=== PATIENT | male | born 1945 | race Caucasian/White ===

== ENCOUNTER 2020-07-09 16:04 | Inpatient (IN) ==
[2020-07-09] MEDS ORDERED: ALBUTEROL/IPRATROPIUM 3 ML NEB RESP TX STA (17:11)
[2020-07-09] MEDS ORDERED: DEXAMETHASONE 4 MG/1 ML VIAL IV STA (17:12)
[2020-07-09 17:24] LABS: Hematocrit 48.5 VOL% (42.0-52.0); Hemoglobin 16.5 GM/DL (14.0-18.0); Immature Granulocytes % 0.5 %; Immature Granulocytes Absolute 0.02 #; Lymphocytes # 0.3 10*3/uL (1.4-4.0); Lymphocytes % 6.6 % (21.2-54.2); Mean Corpuscular Volume 96.2 FL (87-102); Mean Platelet Volume 12.6 FL (9.6-12.0); Monocytes % 5.7 % (1.7-12.7); Neutrophils % 87.2 % (38.7-73.9); Platelet Count 119 T/CUMM (130-400); Red Blood Count 5.04 MC/CUMM (3.8-5.5); Red Cell Distribution Width 13.9 % (9.3-17.3); White Blood Count 4.4 T/CUMM (4-12)
[2020-07-09] MEDS ORDERED: cefTRIAXone 1,000 MG in SODIUM CHLORIDE 0.9% 100 ML IV STA (17:29)
[2020-07-09] MEDS ORDERED: AZITHROMYCIN 250 MG TABLET PO STA (17:29)
[2020-07-09] MEDS ORDERED: GLUCAGON 1 MG VIAL IM PRN (17:53)
[2020-07-09] MEDS ORDERED: ACETAMINOPHEN 325 MG TABLET PO PRN (17:53)
[2020-07-09] MEDS ORDERED: NICOTINE 21 MG/24 HR PATCH TRANSDERM PRN (17:53)
[2020-07-09] MEDS ORDERED: ONDANSETRON 4 MG/2 ML VIAL IV PRN (17:53)
[2020-07-09 17:56] LABS: Albumin 2.7 G/DL (3.4-5.0); Bilirubin,Total 1.2 MG/DL (0.2-1.0); Calcium 8.9 MG/DL (8.5-10.1); Ferritin 640.5 ng/ml (26-388); Osmolality,Calculated 288.7 MOS/KG (273-304); Total Protein 7.6 G/DL (6.4-8.3)
[2020-07-09 18:08] LABS: ABG Base Excess -5.6 MMOL/L (-2.5-2.5); ABG HCO3 19.8 MMOL/L (20-26); ABG Oxygen Saturation 92.5 % (95-100); ABG PO2 64.2 MM HG (80-95); ABG TCO2 15.5 MMOL/L (23-27)
[2020-07-09] MEDS ORDERED: LACTATED RINGERS 1,000 ML IV ONE (18:19)
[2020-07-09] MEDS ORDERED: SODIUM BICARBONATE 50 MEQ/50 ML VIAL IV STA (18:23)
[2020-07-09] MEDS ORDERED: SODIUM BICARB INJ 50 MEQ in DEXTROSE 5% NACL 0.22% 1,000 ML IV SCH (18:30)
[2020-07-09] MEDS: INSULIN LISPRO 100 UNIT/ML SUBCUT SCH (20:36)
[2020-07-09] MEDS: MELATONIN 3 MG TABLET PO SCH (21:05)
[2020-07-09] MEDS: ENOXAPARIN 60 MG/0.6 ML SYRINGE SUBCUT SCH (21:06)
[2020-07-09] MEDS: guaiFENesin/DM ER 600-30 MG TABLET PO PRN (21:06)
[2020-07-09] MEDS: FAMOTIDINE 20 MG/2 ML VIAL IV SCH (21:06)
[2020-07-09] MEDS: CETIRIZINE 10 MG TABLET PO PRN (21:09)
[2020-07-10] MEDS: LACTATED RINGERS 1,000 ML IV SCH ×3 (00:20→16:34)
[2020-07-10 01:50] LABS: Amorphous Crystals,Urine Few /HPF (Few); Bilirubin,Urine Negative (Negative); Blood, Urine Moderate mg/dL (Negative); Glucose,Urine (UA) Negative (Negative); Ketones,Urine Negative (Negative); Mucus,Urine Many /LPF (Occasional); Nitrite,Urine Negative (Negative); Protein,Urine 100 MG/DL; Sperm,Urine Few /HPF (Negative); Urine Appearance CLOUDY (Clear); Urine Color Amber (Yellow); Urine Specific Gravity 1.019 (1.001-1.035); Urine Urobilinogen < 2.0 EU/DL (0.2-1.0); WBC,Urine 2 /HPF (0-6)
[2020-07-10 06:01] LABS: Hemoglobin 15.1 GM/DL (14.0-18.0); Immature Granulocytes % 0.4 %; Immature Granulocytes Absolute 0.01 #; Lymphocytes # 0.3 10*3/uL (1.4-4.0); Lymphocytes % 13.3 % (21.2-54.2); Mean Corpuscular HGB Conc 33.6 GM/DL (32-36); Mean Corpuscular Volume 98.3 FL (87-102); Mean Platelet Volume 12.7 FL (9.6-12.0); Neutrophils % 79.3 % (38.7-73.9); Platelet Count 104 T/CUMM (130-400); Red Blood Count 4.58 MC/CUMM (3.8-5.5); Red Cell Distribution Width 14.2 % (9.3-17.3); White Blood Count 2.6 T/CUMM (4-12)
[2020-07-10 06:04] LABS: INR 1.1; PT Patient Result 11.6 SECS (9.8-11.9)
[2020-07-10 06:15] LABS: Albumin 2.3 G/DL (3.4-5.0); Bilirubin,Total 1.5 MG/DL (0.2-1.0); Calcium 8.5 MG/DL (8.5-10.1); Ferritin 631.2 ng/ml (26-388); Osmolality,Calculated 305.8 MOS/KG (273-304); Total Protein 6.8 G/DL (6.4-8.3)
[2020-07-10 07:43] LABS: Band Neutrophils 5 % (0-10); Eosinophils 1 % (0-10); Hypochromasia Slight; Lymphocytes 5 % (20-55); Macrocytosis Slight; Segmented Neutrophils 83 % (50-85); Total Cells Counted 100
[2020-07-10 07:44] LABS: Platelet Estimate Decreased
[2020-07-10 07:47] LABS: Sedimentation Rate-Westergren 57 MM/HR (0-20)
[2020-07-10] MEDS: CHOLECALCIFEROL 1,000 UNIT TABLET PO SCH (08:58)
[2020-07-10] MEDS: AZITHROMYCIN 250 MG TABLET PO SCH (08:58)
[2020-07-10] MEDS: SODIUM BICARB INJ 150 MEQ in DEXTROSE 5% 850 ML IV SCH ×2 (08:58→22:42)
[2020-07-10] MEDS: ZINC GLUCONATE 50 MG TABLET PO SCH (08:58)
[2020-07-10] MEDS: PANTOPRAZOLE 40 MG TABLET PO SCH (08:58)
[2020-07-10] MEDS: ASCORBIC ACID 500 MG TABLET PO SCH (08:58)
[2020-07-10] MEDS: cefTRIAXone 1,000 MG in SYRINGE 1 EACH IV SCH (08:59)
[2020-07-10] MEDS: INSULIN LISPRO 100 UNIT/ML SUBCUT SCH ×5 (08:59→23:10)
[2020-07-10] MEDS: ENOXAPARIN 60 MG/0.6 ML SYRINGE SUBCUT SCH ×2 (08:59→22:36)
[2020-07-10] MEDS: DEXAMETHASONE 4 MG/1 ML VIAL IV SCH (09:02)
[2020-07-10] MEDS ORDERED: SODIUM CHLORIDE 0.9% 1,000 ML IV PRN (11:44)
[2020-07-10] MEDS ORDERED: FLUoxetine 20 MG CAPSULE PO PRN (15:06)
[2020-07-10] MEDS ORDERED: traMADol 50 MG TABLET PO PRN (21:27)
[2020-07-10] MEDS: MELATONIN 3 MG TABLET PO SCH (22:35)
[2020-07-10] MEDS: guaiFENesin/DM ER 600-30 MG TABLET PO PRN (22:35)
[2020-07-10] MEDS: ZALEPLON 5 MG CAPSULE PO PRN (22:35)
[2020-07-10] MEDS: FAMOTIDINE 20 MG/2 ML VIAL IV SCH (22:36)
[2020-07-10] MEDS: CETIRIZINE 10 MG TABLET PO PRN (22:36)
[2020-07-11] MEDS: ALBUTEROL INHALER 18 GM INH SCH ×4 (00:05→18:22)
[2020-07-11] MEDS: cilostazoL 100 MG TABLET PO SCH ×3 (00:12→20:28)
[2020-07-11] MEDS: DIPYRIDAMOLE/ASPIRIN 200-25 MG CAPSULE PO SCH ×3 (00:13→20:29)
[2020-07-11] MEDS: INSULIN LISPRO 100 UNIT/ML SUBCUT SCH ×3 (04:00→17:30)
[2020-07-11 05:30] LABS: Basophils % 0.1 % (0.0-0.8); Hemoglobin 15.6 GM/DL (14.0-18.0); Immature Granulocytes % 0.7 %; Immature Granulocytes Absolute 0.06 #; Lymphocytes # 0.4 10*3/uL (1.4-4.0); Lymphocytes % 4.6 % (21.2-54.2); Mean Corpuscular HGB Conc 34.7 GM/DL (32-36); Mean Corpuscular Volume 95.7 FL (87-102); Mean Platelet Volume 13.3 FL (9.6-12.0); Neutrophils % 91.6 % (38.7-73.9); Red Cell Distribution Width 13.7 % (9.3-17.3)
[2020-07-11 05:37] LABS: Platelet Count 127 T/CUMM (130-400); White Blood Count 8.5 T/CUMM (4-12)
[2020-07-11 05:49] LABS: Albumin 2.4 G/DL (3.4-5.0); Bilirubin,Total 0.6 MG/DL (0.2-1.0); Calcium 8.7 MG/DL (8.5-10.1); Osmolality,Calculated 302.4 MOS/KG (273-304); Total Protein 6.9 G/DL (6.4-8.3)
[2020-07-11] MEDS ORDERED: carvediloL 6.25 MG TABLET PO SCH ×3 (06:35→09:00)
[2020-07-11 06:38] LABS: Band Neutrophils 8 % (0-10); Lymphocytes 6 % (20-55); Segmented Neutrophils 85 % (50-85); Total Cells Counted 100
[2020-07-11 06:40] LABS: Hypochromasia 1+; Macrocytosis Slight
[2020-07-11 06:41] LABS: Platelet Estimate Adequate; Target Cells Slight
[2020-07-11] MEDS ORDERED: POTASSIUM CHLORIDE 20 MEQ TABLET PO STA (07:13)
[2020-07-11] MEDS ORDERED: METOPROLOL TARTRATE 5 MG/5 ML VIAL IV ONE ×2 (07:17→07:38)
[2020-07-11] MEDS ORDERED: MORPHINE 4 MG/1 ML VIAL ONE (07:21)
[2020-07-11] MEDS ORDERED: NITROGLYCERIN SL 0.4 MG TABLET SL PRN (07:21)
[2020-07-11] MEDS ORDERED: ASPIRIN CHEW 81 MG TABLET PO ONE ×2 (07:22→07:31)
[2020-07-11] MEDS ORDERED: NITROGLYCERIN SL 0.4 MG TABLET SL ONE (07:22)
[2020-07-11] MEDS: ASPIRIN CHEW 81 MG TABLET PO ONE ×2 (07:23→15:01)
[2020-07-11] MEDS ORDERED: DIGOXIN 0.5 MG/2 ML AMP IV ONE ×2 (07:57→14:00)
[2020-07-11] MEDS: glipiZIDE 10 MG TABLET PO SCH ×2 (09:13→17:30)
[2020-07-11] MEDS: DEXAMETHASONE 4 MG/1 ML VIAL IV SCH (09:15)
[2020-07-11] MEDS: ENOXAPARIN 100 MG/ML SYRINGE SUBCUT SCH ×2 (09:16→20:28)
[2020-07-11] MEDS: PANTOPRAZOLE 40 MG TABLET PO SCH (09:17)
[2020-07-11] MEDS: ASCORBIC ACID 500 MG TABLET PO SCH ×2 (09:18→20:29)
[2020-07-11] MEDS: ZINC GLUCONATE 50 MG TABLET PO SCH (09:18)
[2020-07-11] MEDS: CHOLECALCIFEROL 1,000 UNIT TABLET PO SCH (09:18)
[2020-07-11] MEDS: AZITHROMYCIN 250 MG TABLET PO SCH (09:18)
[2020-07-11] MEDS: cefTRIAXone 1,000 MG in SYRINGE 1 EACH IV SCH (09:21)
[2020-07-11] MEDS ORDERED: AMIODARONE INJ 150 MG in DEXTROSE 5% 100 ML IV ONE (11:00)
[2020-07-11] MEDS ORDERED: AMIODARONE INJ 450 MG in DEXTROSE 5% 241 ML IV SCH ×2 (11:00→16:00)
[2020-07-11] MEDS: BISOPROLOL 5 MG TABLET PO SCH ×2 (11:13→20:29)
[2020-07-11] MEDS: LORazepam 2 MG/1 ML VIAL IV PRN ×2 (11:56→20:10)
[2020-07-11] MEDS ORDERED: HALOPERIDOL 5 MG/ML AMP IM ONE (12:49)
[2020-07-11] MEDS: NON-FORMULARY MEDICATION (Tiotropium-Olodaterol [Stiolto Respimat] 2.5-2.5 mcg/actuation m INH SCH (13:12)
[2020-07-11] MEDS: FENOFIBRIC ACID 135 MG PO SCH (13:12)
[2020-07-11] MEDS: SODIUM BICARB INJ 150 MEQ in DEXTROSE 5% 850 ML IV SCH (13:14)
[2020-07-11] MEDS: AMIODARONE 200 MG TABLET PO SCH ×2 (13:49→20:28)
[2020-07-11] MEDS: INSULIN GLARGINE 100 UNIT/ML SUBCUT SCH (20:26)
[2020-07-11] MEDS: FAMOTIDINE 20 MG/2 ML VIAL IV SCH (20:27)
[2020-07-11] MEDS: MELATONIN 3 MG TABLET PO SCH (20:28)
[2020-07-11] MEDS: ZALEPLON 5 MG CAPSULE PO PRN (20:29)
[2020-07-11] MEDS: SIMVASTATIN 20 MG TABLET PO SCH (20:30)
[2020-07-12] MEDS: INSULIN LISPRO 100 UNIT/ML SUBCUT SCH ×4 (01:26→19:04)
[2020-07-12] MEDS: ALBUTEROL INHALER 18 GM INH SCH ×4 (01:27→19:04)
[2020-07-12] MEDS: LORazepam 2 MG/1 ML VIAL IV PRN ×2 (02:38→20:04)
[2020-07-12 06:50] LABS: Albumin 2.3 G/DL (3.4-5.0); Bilirubin,Total 0.6 MG/DL (0.2-1.0); Total Protein 7.3 G/DL (6.4-8.3)
[2020-07-12] MEDS: DEXAMETHASONE 4 MG/1 ML VIAL IV SCH (09:30)
[2020-07-12] MEDS: cefTRIAXone 1,000 MG in SYRINGE 1 EACH IV SCH (09:30)
[2020-07-12 09:49] LABS: ABG HCO3 27.7 MMOL/L (20-26); ABG PCO2 64.7 MM HG (35-48); ABG PH 7.317 (7.35-7.45); ABG PO2 57.6 MM HG (80-95); ABG TCO2 28.3 MMOL/L (23-27)
[2020-07-12] MEDS: DEXTROSE 50% 25 GM/50 ML VIAL IV PRN (10:57)
[2020-07-12] MEDS: DIPYRIDAMOLE/ASPIRIN 200-25 MG CAPSULE PO SCH ×2 (11:10→20:01)
[2020-07-12] MEDS: AMIODARONE 200 MG TABLET PO SCH ×2 (11:10→20:01)
[2020-07-12] MEDS: glipiZIDE 10 MG TABLET PO SCH ×2 (11:10→19:04)
[2020-07-12] MEDS: ENOXAPARIN 100 MG/ML SYRINGE SUBCUT SCH ×2 (11:11→20:03)
[2020-07-12] MEDS: FENOFIBRIC ACID 135 MG PO SCH (11:11)
[2020-07-12] MEDS: cilostazoL 100 MG TABLET PO SCH ×2 (11:11→20:02)
[2020-07-12] MEDS: PANTOPRAZOLE 40 MG TABLET PO SCH (11:12)
[2020-07-12] MEDS: ASCORBIC ACID 500 MG TABLET PO SCH ×2 (11:14→20:05)
[2020-07-12] MEDS: CHOLECALCIFEROL 1,000 UNIT TABLET PO SCH (11:14)
[2020-07-12] MEDS: NON-FORMULARY MEDICATION (Tiotropium-Olodaterol [Stiolto Respimat] 2.5-2.5 mcg/actuation m INH SCH (11:14)
[2020-07-12] MEDS: AZITHROMYCIN 250 MG TABLET PO SCH (11:15)
[2020-07-12] MEDS: ZINC GLUCONATE 50 MG TABLET PO SCH (11:15)
[2020-07-12] MEDS: BISOPROLOL 5 MG TABLET PO SCH ×2 (11:15→20:02)
[2020-07-12] MEDS: methylPREDNISolone SOD SUC 40 MG/1 ML VIAL IV SCH ×3 (12:33→22:29)
[2020-07-12] MEDS: ZALEPLON 5 MG CAPSULE PO PRN (20:01)
[2020-07-12] MEDS: SIMVASTATIN 20 MG TABLET PO SCH (20:02)
[2020-07-12] MEDS: MELATONIN 3 MG TABLET PO SCH (20:02)
[2020-07-12] MEDS: INSULIN GLARGINE 100 UNIT/ML SUBCUT SCH (20:03)
[2020-07-12] MEDS: FAMOTIDINE 20 MG/2 ML VIAL IV SCH (20:05)
[2020-07-12] MEDS ORDERED: LORazepam 2 MG/1 ML VIAL IV ONE (22:11)
[2020-07-13] MEDS ORDERED: MIRTAZAPINE 15 MG TABLET PO ONE (01:13)
[2020-07-13] MEDS: ALBUTEROL INHALER 18 GM INH SCH ×3 (01:21→14:08)
[2020-07-13] MEDS: INSULIN LISPRO 100 UNIT/ML SUBCUT SCH ×4 (01:28→17:56)
[2020-07-13 02:43] LABS: ABG Base Excess 3.7 MMOL/L (-2.5-2.5); ABG HCO3 27.6 MMOL/L (20-26); ABG PCO2 48.1 MM HG (35-48); ABG PH 7.399 (7.35-7.45); ABG PO2 63.8 MM HG (80-95); ABG TCO2 24.8 MMOL/L (23-27)
[2020-07-13] MEDS ORDERED: LORazepam 2 MG/1 ML VIAL IV ONE (02:49)
[2020-07-13] MEDS: methylPREDNISolone SOD SUC 40 MG/1 ML VIAL IV SCH ×4 (03:14→21:56)
[2020-07-13] MEDS ORDERED: METOPROLOL TARTRATE 5 MG/5 ML VIAL IV ONE (04:14)
[2020-07-13] MEDS ORDERED: ETOMIDATE 20 MG/10 ML VIAL IV ONE ×2 (04:55→05:08)
[2020-07-13] MEDS ORDERED: ROCURONIUM 100 MG/10 ML VIAL IV ONE ×2 (04:55→05:08)
[2020-07-13] MEDS ORDERED: SODIUM CHLORIDE 0.9% 500 ML IV ONE (05:50)
[2020-07-13 06:09] LABS: Basophils % 0.1 % (0.0-0.8); Hemoglobin 15.9 GM/DL (14.0-18.0); Immature Granulocytes % 0.6 %; Immature Granulocytes Absolute 0.04 #; Lymphocytes # 0.2 10*3/uL (1.4-4.0); Lymphocytes % 2.7 % (21.2-54.2); Mean Corpuscular HGB Conc 33.1 GM/DL (32-36); Mean Corpuscular Volume 99.2 FL (87-102); Mean Platelet Volume 12.3 FL (9.6-12.0); Neutrophils % 91.6 % (38.7-73.9); Platelet Count 162 T/CUMM (130-400); Red Blood Count 4.84 MC/CUMM (3.8-5.5); Red Cell Distribution Width 13.8 % (9.3-17.3)
[2020-07-13 06:21] LABS: ABG Base Excess 3.5 MMOL/L (-2.5-2.5); ABG HCO3 27.4 MMOL/L (20-26); ABG Oxygen Saturation 94.9 % (95-100); ABG PCO2 50.3 MM HG (35-48); ABG PH 7.382 (7.35-7.45); ABG PO2 73.3 MM HG (80-95); ABG TCO2 25.4 MMOL/L (23-27)
[2020-07-13 06:43] LABS: Calcium 8.8 MG/DL (8.5-10.1); Osmolality,Calculated 312.7 MOS/KG (273-304)
[2020-07-13] MEDS: DEXTROSE 50% 25 GM/50 ML VIAL IV PRN (06:47)
[2020-07-13 06:50] LABS: Lymphocytes 4 % (20-55); Platelet Estimate Adequate; Segmented Neutrophils 93 % (50-85); Total Cells Counted 100
[2020-07-13] MEDS: glipiZIDE 10 MG TABLET PO SCH (07:56)
[2020-07-13] MEDS: ENOXAPARIN 100 MG/ML SYRINGE SUBCUT SCH ×2 (09:13→21:56)
[2020-07-13] MEDS: ZINC GLUCONATE 50 MG TABLET PO SCH (09:14)
[2020-07-13] MEDS: AMIODARONE 200 MG TABLET PO SCH ×2 (09:14→21:55)
[2020-07-13] MEDS: ASCORBIC ACID 500 MG TABLET PO SCH ×2 (09:14→21:57)
[2020-07-13] MEDS: AZITHROMYCIN 250 MG TABLET PO SCH (09:14)
[2020-07-13] MEDS: CHOLECALCIFEROL 1,000 UNIT TABLET PO SCH (09:14)
[2020-07-13] MEDS: cefTRIAXone 1,000 MG in SYRINGE 1 EACH IV SCH (09:15)
[2020-07-13] MEDS: BISOPROLOL 5 MG TABLET PO SCH ×2 (09:16→21:57)
[2020-07-13] MEDS: DIPYRIDAMOLE/ASPIRIN 200-25 MG CAPSULE PO SCH ×2 (09:17→21:55)
[2020-07-13] MEDS: cilostazoL 100 MG TABLET PO SCH ×2 (09:17→21:56)
[2020-07-13] MEDS ORDERED: SODIUM CHLORIDE 0.9% 1,000 ML IV ONE (10:32)
[2020-07-13] MEDS: FENOFIBRIC ACID 135 MG PO SCH (11:52)
[2020-07-13] MEDS: NON-FORMULARY MEDICATION (Tiotropium-Olodaterol [Stiolto Respimat] 2.5-2.5 mcg/actuation m INH SCH (11:53)
[2020-07-13] MEDS: PANTOPRAZOLE 40 MG TABLET PO SCH (11:56)
[2020-07-13] MEDS: FLUDROCORTISONE 0.1 MG TABLET PER TUBE SCH ×2 (14:08→21:55)
[2020-07-13] MEDS ORDERED: DEXTROSE 50% 25 GM/50 ML VIAL IV PRN (14:49)
[2020-07-13] MEDS ORDERED: GLUCAGON 1 MG VIAL IM PRN (14:49)
[2020-07-13] MEDS: PHENYLEPHRINE DRIP 40 MG/250 ML PREMIX IV PRN (15:05)
[2020-07-13] MEDS: MELATONIN 3 MG TABLET PO SCH (21:56)
[2020-07-13] MEDS: FAMOTIDINE 20 MG/2 ML VIAL IV SCH (21:56)
[2020-07-13] MEDS: INSULIN GLARGINE 100 UNIT/ML SUBCUT SCH (21:56)
[2020-07-13] MEDS: SIMVASTATIN 20 MG TABLET PO SCH (21:57)
[2020-07-14] MEDS: ALBUTEROL INHALER 18 GM INH SCH ×5 (00:02→20:56)
[2020-07-14] MEDS: INSULIN LISPRO 100 UNIT/ML SUBCUT SCH ×4 (01:36→18:35)
[2020-07-14 03:55] LABS: Basophils % 0.1 % (0.0-0.8); Hematocrit 45.1 VOL% (42.0-52.0); Immature Granulocytes % 0.7 %; Immature Granulocytes Absolute 0.07 #; Lymphocytes # 0.3 10*3/uL (1.4-4.0); Lymphocytes % 2.7 % (21.2-54.2); Mean Corpuscular HGB Conc 33.3 GM/DL (32-36); Mean Platelet Volume 12.5 FL (9.6-12.0); Monocytes % 3.1 % (1.7-12.7); Neutrophils % 93.4 % (38.7-73.9); Platelet Count 200 T/CUMM (130-400); Red Cell Distribution Width 14.3 % (9.3-17.3); White Blood Count 10.3 T/CUMM (4-12)
[2020-07-14 04:19] LABS: Calcium 8.4 MG/DL (8.5-10.1); Ferritin 616.9 ng/ml (26-388); Osmolality,Calculated 322.3 MOS/KG (273-304)
[2020-07-14 04:28] LABS: Band Neutrophils 2 % (0-10); Lymphocytes 2 % (20-55); Platelet Estimate Adequate; Segmented Neutrophils 94 % (50-85); Total Cells Counted 100
[2020-07-14] MEDS: methylPREDNISolone SOD SUC 40 MG/1 ML VIAL IV SCH ×4 (05:10→22:00)
[2020-07-14 05:46] LABS: ABG Base Excess 0.3 MMOL/L (-2.5-2.5); ABG HCO3 24.4 MMOL/L (20-26); ABG Oxygen Saturation 97.7 % (95-100); ABG PH 7.426 (7.35-7.45); ABG PO2 100.8 MM HG (80-95); ABG TCO2 25.6 MMOL/L (23-27)
[2020-07-14] MEDS: CHOLECALCIFEROL 1,000 UNIT TABLET PO SCH (08:36)
[2020-07-14] MEDS: ASCORBIC ACID 500 MG TABLET PO SCH ×2 (08:36→20:46)
[2020-07-14] MEDS: ENOXAPARIN 100 MG/ML SYRINGE SUBCUT SCH ×2 (08:36→20:45)
[2020-07-14] MEDS: AMIODARONE 200 MG TABLET PO SCH ×2 (08:37→20:46)
[2020-07-14] MEDS: FLUDROCORTISONE 0.1 MG TABLET PER TUBE SCH ×2 (08:37→20:46)
[2020-07-14] MEDS: ZINC GLUCONATE 50 MG TABLET PO SCH (08:37)
[2020-07-14] MEDS: cefTRIAXone 1,000 MG in SYRINGE 1 EACH IV SCH (08:37)
[2020-07-14] MEDS: cilostazoL 100 MG TABLET PO SCH ×2 (08:38→20:46)
[2020-07-14] MEDS: DIPYRIDAMOLE/ASPIRIN 200-25 MG CAPSULE PO SCH ×2 (08:38→20:46)
[2020-07-14] MEDS: FENOFIBRIC ACID 135 MG PO SCH (08:39)
[2020-07-14] MEDS: NON-FORMULARY MEDICATION (Tiotropium-Olodaterol [Stiolto Respimat] 2.5-2.5 mcg/actuation m INH SCH (08:39)
[2020-07-14] MEDS ORDERED: PIPERACILLIN/TAZOBACTAM 2,250 MG in SODIUM CHLORIDE 0.9% 100 ML IV SCH (16:00)
[2020-07-14] MEDS: PIPERACILLIN/TAZOBACTAM 3,375 MG in SODIUM CHLORIDE 0.9% 100 ML IV SCH (18:32)
[2020-07-14] MEDS: PHENYLEPHRINE DRIP 40 MG/250 ML PREMIX IV PRN (18:35)
[2020-07-14] MEDS: MELATONIN 3 MG TABLET PO SCH (20:45)
[2020-07-14] MEDS: SIMVASTATIN 20 MG TABLET PO SCH (20:46)
[2020-07-14] MEDS: FAMOTIDINE 20 MG/2 ML VIAL IV SCH (20:47)
[2020-07-14] MEDS: INSULIN GLARGINE 100 UNIT/ML SUBCUT SCH (20:48)
[2020-07-15] MEDS: PIPERACILLIN/TAZOBACTAM 3,375 MG in SODIUM CHLORIDE 0.9% 100 ML IV SCH ×4 (00:15→23:33)
[2020-07-15] MEDS: INSULIN LISPRO 100 UNIT/ML SUBCUT SCH ×5 (00:20→23:45)
[2020-07-15] MEDS: ALBUTEROL INHALER 18 GM INH SCH ×4 (03:03→18:43)
[2020-07-15 04:19] LABS: Basophils % 0.1 % (0.0-0.8); Hematocrit 45.3 VOL% (42.0-52.0); Hemoglobin 15.1 GM/DL (14.0-18.0); Immature Granulocytes % 1.7 %; Immature Granulocytes Absolute 0.18 #; Lymphocytes # 0.3 10*3/uL (1.4-4.0); Lymphocytes % 2.7 % (21.2-54.2); Mean Corpuscular HGB Conc 33.3 GM/DL (32-36); Mean Corpuscular Volume 99.3 FL (87-102); Mean Platelet Volume 12.5 FL (9.6-12.0); Monocytes % 5.4 % (1.7-12.7); Neutrophils % 90.1 % (38.7-73.9); Platelet Count 214 T/CUMM (130-400); Red Blood Count 4.56 MC/CUMM (3.8-5.5); Red Cell Distribution Width 14.3 % (9.3-17.3); White Blood Count 10.7 T/CUMM (4-12)
[2020-07-15 04:41] LABS: Lymphocytes 2 % (20-55); Platelet Estimate Adequate; Segmented Neutrophils 94 % (50-85); Total Cells Counted 100
[2020-07-15 04:43] LABS: ABG Base Excess 2.1 MMOL/L (-2.5-2.5); ABG HCO3 26.2 MMOL/L (20-26); ABG Oxygen Saturation 98.1 % (95-100); ABG PCO2 44.3 MM HG (35-48); ABG PH 7.401 (7.35-7.45); ABG TCO2 22.8 MMOL/L (23-27)
[2020-07-15 04:44] LABS: Allen Test Positive; Pt O2 Delivery Device Ventilator
[2020-07-15 05:30] LABS: Bilirubin,Total 0.7 MG/DL (0.2-1.0); Calcium 8.3 MG/DL (8.5-10.1); Ferritin 688.3 ng/ml (26-388); Osmolality,Calculated 325.9 MOS/KG (273-304); Total Protein 5.8 G/DL (6.4-8.3)
[2020-07-15] MEDS: methylPREDNISolone SOD SUC 40 MG/1 ML VIAL IV SCH ×3 (06:29→22:45)
[2020-07-15] MEDS: CHOLECALCIFEROL 1,000 UNIT TABLET PO SCH (08:03)
[2020-07-15] MEDS: ASCORBIC ACID 500 MG TABLET PO SCH ×2 (08:04→22:45)
[2020-07-15] MEDS: ENOXAPARIN 100 MG/ML SYRINGE SUBCUT SCH (08:04)
[2020-07-15] MEDS: ZINC GLUCONATE 50 MG TABLET PO SCH (08:04)
[2020-07-15] MEDS: FLUDROCORTISONE 0.1 MG TABLET PER TUBE SCH ×2 (08:04→22:55)
[2020-07-15] MEDS: cilostazoL 100 MG TABLET PO SCH ×2 (08:04→22:45)
[2020-07-15] MEDS: AMIODARONE 200 MG TABLET PO SCH ×2 (08:04→22:44)
[2020-07-15] MEDS: DIPYRIDAMOLE/ASPIRIN 200-25 MG CAPSULE PO SCH ×2 (08:05→22:44)
[2020-07-15] MEDS: FENOFIBRIC ACID 135 MG PO SCH (09:36)
[2020-07-15] MEDS: NON-FORMULARY MEDICATION (Tiotropium-Olodaterol [Stiolto Respimat] 2.5-2.5 mcg/actuation m INH SCH (09:36)
[2020-07-15] MEDS ORDERED: POTASSIUM PHOSPHATE IV ONE (12:00)
[2020-07-15] MEDS ORDERED: SODIUM CHLORIDE 0.9% IV ONE (12:00)
[2020-07-15] MEDS ORDERED: INSULIN GLARGINE 100 UNIT/ML SUBCUT SCH (21:00)
[2020-07-15] MEDS: CETIRIZINE 10 MG TABLET PO PRN (22:44)
[2020-07-15] MEDS: SIMVASTATIN 20 MG TABLET PO SCH (22:45)
[2020-07-15] MEDS: MELATONIN 3 MG TABLET PO SCH (22:46)
[2020-07-15] MEDS: FAMOTIDINE 20 MG/2 ML VIAL IV SCH (22:55)
[2020-07-15 23:31] LABS: Specimen Source SPUTUM
[2020-07-16 04:49] LABS: Allen Test Positive; Pt O2 Delivery Device Ventilator
[2020-07-16 04:50] LABS: ABG Base Excess 0.7 MMOL/L (-2.5-2.5); ABG HCO3 25.9 MMOL/L (20-26); ABG Oxygen Saturation 96.3 % (95-100); ABG PCO2 43.3 MM HG (35-48); ABG PH 7.394 (7.35-7.45); ABG PO2 83.5 MM HG (80-95); ABG TCO2 27.2 MMOL/L (23-27)
[2020-07-16 05:10] LABS: Basophils % 0.1 % (0.0-0.8); Hematocrit 46.5 VOL% (42.0-52.0); Hemoglobin 15.4 GM/DL (14.0-18.0); Immature Granulocytes % 3.8 %; Immature Granulocytes Absolute 0.28 #; Lymphocytes # 0.2 10*3/uL (1.4-4.0); Lymphocytes % 3.2 % (21.2-54.2); Mean Corpuscular HGB Conc 33.1 GM/DL (32-36); Mean Corpuscular Volume 99.8 FL (87-102); Mean Platelet Volume 12.7 FL (9.6-12.0); Monocytes % 5.7 % (1.7-12.7); NRBC # 0.03 10*3/uL; Neutrophils % 87.2 % (38.7-73.9); Platelet Count 183 T/CUMM (130-400); Red Blood Count 4.66 MC/CUMM (3.8-5.5); Red Cell Distribution Width 14.4 % (9.3-17.3); White Blood Count 7.4 T/CUMM (4-12)
[2020-07-16 05:29] LABS: Lymphocytes 5 % (20-55); Platelet Estimate Adequate; Segmented Neutrophils 90 % (50-85); Total Cells Counted 100
[2020-07-16 05:37] LABS: Calcium 8.6 MG/DL (8.5-10.1); Osmolality,Calculated 331.7 MOS/KG (273-304)
[2020-07-16] MEDS: INSULIN LISPRO 100 UNIT/ML SUBCUT SCH ×3 (07:16→18:05)
[2020-07-16] MEDS: PIPERACILLIN/TAZOBACTAM 3,375 MG in SODIUM CHLORIDE 0.9% 100 ML IV SCH (08:11)
[2020-07-16] MEDS: methylPREDNISolone SOD SUC 40 MG/1 ML VIAL IV SCH ×2 (08:14→21:01)
[2020-07-16] MEDS: FLUDROCORTISONE 0.1 MG TABLET PER TUBE SCH (08:14)
[2020-07-16] MEDS: ALBUTEROL INHALER 18 GM INH SCH ×4 (08:14→21:16)
[2020-07-16] MEDS: AMIODARONE 200 MG TABLET PO SCH ×2 (08:15→20:03)
[2020-07-16] MEDS: cilostazoL 100 MG TABLET PO SCH ×2 (08:15→20:04)
[2020-07-16] MEDS: ASCORBIC ACID 500 MG TABLET PO SCH ×2 (08:15→20:03)
[2020-07-16] MEDS: DIPYRIDAMOLE/ASPIRIN 200-25 MG CAPSULE PO SCH ×2 (08:15→20:03)
[2020-07-16] MEDS: CHOLECALCIFEROL 1,000 UNIT TABLET PO SCH (08:15)
[2020-07-16] MEDS: ZINC GLUCONATE 50 MG TABLET PO SCH (08:15)
[2020-07-16] MEDS: FENOFIBRIC ACID 135 MG PO SCH (08:16)
[2020-07-16] MEDS: NON-FORMULARY MEDICATION (Tiotropium-Olodaterol [Stiolto Respimat] 2.5-2.5 mcg/actuation m INH SCH (08:16)
[2020-07-16] MEDS: BISOPROLOL 5 MG TABLET PO SCH ×2 (08:21→22:00)
[2020-07-16] MEDS: ENOXAPARIN 100 MG/ML SYRINGE SUBCUT SCH (08:24)
[2020-07-16] MEDS: DEXTROSE 5% 1,000 ML IV SCH (11:28)
[2020-07-16] MEDS ORDERED: NEBIVOLOL 5 MG TABLET PO ONE (13:19)
[2020-07-16] MEDS: FAMOTIDINE 20 MG/2 ML VIAL IV SCH (20:03)
[2020-07-16] MEDS: SIMVASTATIN 20 MG TABLET PO SCH (20:03)
[2020-07-16] MEDS ORDERED: INSULIN GLARGINE 100 UNIT/ML SUBCUT SCH (21:00)
[2020-07-16] MEDS: MELATONIN 3 MG TABLET PO SCH (21:14)
[2020-07-17] MEDS: INSULIN LISPRO 100 UNIT/ML SUBCUT SCH ×4 (00:40→18:08)
[2020-07-17] MEDS: ALBUTEROL INHALER 18 GM INH SCH ×4 (01:00→20:09)
[2020-07-17 03:42] LABS: Basophils # 0.1 10*3/uL (0.0-0.2); Basophils % 0.7 % (0.0-0.8); Eosinophils % 0.4 % (0.00-10.9); Hematocrit 46.3 VOL% (42.0-52.0); Hemoglobin 14.8 GM/DL (14.0-18.0); Immature Granulocytes % 5.2 %; Immature Granulocytes Absolute 0.37 #; Lymphocytes # 0.6 10*3/uL (1.4-4.0); Lymphocytes % 8.6 % (21.2-54.2); Mean Corpuscular Volume 100.9 FL (87-102); Mean Platelet Volume 12.8 FL (9.6-12.0); Monocytes % 6.7 % (1.7-12.7); NRBC # 0.02 10*3/uL; Neutrophils % 78.4 % (38.7-73.9); Platelet Count 145 T/CUMM (130-400); Red Blood Count 4.59 MC/CUMM (3.8-5.5); Red Cell Distribution Width 14.2 % (9.3-17.3); White Blood Count 7.1 T/CUMM (4-12)
[2020-07-17 04:10] LABS: Albumin 1.8 G/DL (3.4-5.0); Bilirubin,Total 0.5 MG/DL (0.2-1.0); Calcium 8.1 MG/DL (8.5-10.1); Osmolality,Calculated 322.6 MOS/KG (273-304)
[2020-07-17 04:12] LABS: ABG Base Excess 1.3 MMOL/L (-2.5-2.5); ABG HCO3 25.5 MMOL/L (20-26); ABG Oxygen Saturation 97.4 % (95-100); ABG PCO2 44.5 MM HG (35-48); ABG PH 7.387 (7.35-7.45); ABG TCO2 22.8 MMOL/L (23-27); Allen Test Positive; Pt O2 Delivery Device Ventilator
[2020-07-17 04:25] LABS: Hypochromasia 1+; Lymphocytes 8 % (20-55); Platelet Estimate Adequate; Segmented Neutrophils 85 % (50-85); Total Cells Counted 100
[2020-07-17] MEDS: DEXTROSE 5% 1,000 ML IV SCH ×2 (06:04→11:15)
[2020-07-17] MEDS: CHOLECALCIFEROL 1,000 UNIT TABLET PO SCH (08:18)
[2020-07-17] MEDS: ZINC GLUCONATE 50 MG TABLET PO SCH (08:18)
[2020-07-17] MEDS: ENOXAPARIN 100 MG/ML SYRINGE SUBCUT SCH (08:18)
[2020-07-17] MEDS: ASCORBIC ACID 500 MG TABLET PO SCH ×2 (08:19→20:11)
[2020-07-17] MEDS: cilostazoL 100 MG TABLET PO SCH ×2 (08:19→20:11)
[2020-07-17] MEDS: methylPREDNISolone SOD SUC 40 MG/1 ML VIAL IV SCH ×2 (08:19→20:10)
[2020-07-17] MEDS: FLUDROCORTISONE 0.1 MG TABLET PER TUBE SCH (08:19)
[2020-07-17] MEDS: BISOPROLOL 5 MG TABLET PO SCH ×2 (08:19→20:11)
[2020-07-17] MEDS: DIPYRIDAMOLE/ASPIRIN 200-25 MG CAPSULE PO SCH ×2 (08:20→20:10)
[2020-07-17] MEDS: NON-FORMULARY MEDICATION (Tiotropium-Olodaterol [Stiolto Respimat] 2.5-2.5 mcg/actuation m INH SCH (08:20)
[2020-07-17] MEDS: AMIODARONE 200 MG TABLET PO SCH ×2 (08:20→20:11)
[2020-07-17] MEDS: FENOFIBRIC ACID 135 MG PO SCH (09:57)
[2020-07-17] MEDS ORDERED: SERTRALINE 25 MG TABLET PO ONE (19:00)
[2020-07-17] MEDS: FAMOTIDINE 20 MG/2 ML VIAL IV SCH (20:09)
[2020-07-17] MEDS: SIMVASTATIN 20 MG TABLET PO SCH (20:11)
[2020-07-17] MEDS: MELATONIN 3 MG TABLET PO SCH (20:12)
[2020-07-17] MEDS: INSULIN GLARGINE 100 UNIT/ML SUBCUT SCH (21:37)
[2020-07-18] MEDS: INSULIN LISPRO 100 UNIT/ML SUBCUT SCH ×5 (00:54→23:51)
[2020-07-18] MEDS: ALBUTEROL INHALER 18 GM INH SCH ×4 (01:33→19:12)
[2020-07-18 03:50] LABS: ABG Base Excess 2.2 MMOL/L (-2.5-2.5); ABG HCO3 26.4 MMOL/L (20-26); ABG TCO2 23.5 MMOL/L (23-27); Allen Test Positive; Pt O2 Delivery Device Ventilator
[2020-07-18 05:45] LABS: Basophils % 0.4 % (0.0-0.8); Eosinophils % 0.4 % (0.00-10.9); Hematocrit 41.7 VOL% (42.0-52.0); Immature Granulocytes % 6.4 %; Lymphocytes # 0.5 10*3/uL (1.4-4.0); Lymphocytes % 6.6 % (21.2-54.2); Mean Corpuscular HGB Conc 33.6 GM/DL (32-36); Mean Corpuscular Volume 97.9 FL (87-102); Mean Platelet Volume 12.7 FL (9.6-12.0); Monocytes % 6.3 % (1.7-12.7); NRBC # 0.02 10*3/uL; Neutrophils % 79.9 % (38.7-73.9); Platelet Count 158 T/CUMM (130-400); Red Blood Count 4.26 MC/CUMM (3.8-5.5); Red Cell Distribution Width 13.7 % (9.3-17.3); White Blood Count 7.8 T/CUMM (4-12)
[2020-07-18 06:16] LABS: Calcium 8.6 MG/DL (8.5-10.1); Osmolality,Calculated 308.1 MOS/KG (273-304)
[2020-07-18 07:58] LABS: Band Neutrophils 2 % (0-10); Hypochromasia 1+; Lymphocytes 7 % (20-55); Segmented Neutrophils 88 % (50-85); Total Cells Counted 100
[2020-07-18 07:59] LABS: Microcytosis 1+; Platelet Estimate Adequate
[2020-07-18] MEDS: BISOPROLOL 5 MG TABLET PO SCH ×2 (09:35→09:36)
[2020-07-18] MEDS: FLUDROCORTISONE 0.1 MG TABLET PER TUBE SCH (09:35)
[2020-07-18] MEDS: ZINC GLUCONATE 50 MG TABLET PO SCH (09:35)
[2020-07-18] MEDS: CHOLECALCIFEROL 1,000 UNIT TABLET PO SCH (09:35)
[2020-07-18] MEDS: ASCORBIC ACID 500 MG TABLET PO SCH ×2 (09:35→20:31)
[2020-07-18] MEDS: AMIODARONE 200 MG TABLET PO SCH ×2 (09:36→20:31)
[2020-07-18] MEDS: cilostazoL 100 MG TABLET PO SCH ×2 (09:36→20:30)
[2020-07-18] MEDS: DIPYRIDAMOLE/ASPIRIN 200-25 MG CAPSULE PO SCH ×2 (09:36→20:30)
[2020-07-18] MEDS: methylPREDNISolone SOD SUC 40 MG/1 ML VIAL IV SCH ×2 (09:37→20:31)
[2020-07-18] MEDS: NON-FORMULARY MEDICATION (Tiotropium-Olodaterol [Stiolto Respimat] 2.5-2.5 mcg/actuation m INH SCH (09:38)
[2020-07-18] MEDS: ENOXAPARIN 100 MG/ML SYRINGE SUBCUT SCH (09:38)
[2020-07-18] MEDS: FENOFIBRIC ACID 135 MG PO SCH (09:39)
[2020-07-18] MEDS: SERTRALINE 25 MG TABLET PO SCH (20:31)
[2020-07-18] MEDS: SIMVASTATIN 20 MG TABLET PO SCH (20:31)
[2020-07-18] MEDS: FAMOTIDINE 20 MG/2 ML VIAL IV SCH (20:32)
[2020-07-18] MEDS: INSULIN GLARGINE 100 UNIT/ML SUBCUT SCH (20:33)
[2020-07-18] MEDS: MELATONIN 3 MG TABLET PO SCH (20:34)
[2020-07-18] MEDS ORDERED: SODIUM CHLORIDE 0.9% 500 ML IV ONE (22:16)
[2020-07-18] MEDS ORDERED: NOREPINEPHRINE 8 MG in SODIUM CHLORIDE 0.9% 242 ML IV PRN (22:16)
[2020-07-19] MEDS: ALBUTEROL INHALER 18 GM INH SCH ×4 (00:46→20:41)
[2020-07-19 04:02] LABS: ABG Base Excess 0.8 MMOL/L (-2.5-2.5); ABG Oxygen Saturation 93.6 % (95-100); ABG PCO2 38.5 MM HG (35-48); ABG PH 7.421 (7.35-7.45); ABG PO2 68.9 MM HG (80-95); ABG TCO2 21.4 MMOL/L (23-27)
[2020-07-19] MEDS ORDERED: SODIUM CHLORIDE 0.9% 500 ML IV ONE (04:22)
[2020-07-19] MEDS: SODIUM CHLORIDE 0.9% 1,000 ML IV SCH ×3 (04:52→20:38)
[2020-07-19] MEDS: INSULIN LISPRO 100 UNIT/ML SUBCUT SCH ×3 (06:14→17:56)
[2020-07-19 06:25] LABS: Basophils # 0.1 10*3/uL (0.0-0.2); Basophils % 0.4 % (0.0-0.8); Eosinophils # 0.1 10*3/uL (0.0-0.87); Eosinophils % 0.5 % (0.00-10.9); Hematocrit 36.5 VOL% (42.0-52.0); Immature Granulocytes % 9.5 %; Immature Granulocytes Absolute 1.22 #; Lymphocytes # 0.7 10*3/uL (1.4-4.0); Lymphocytes % 5.7 % (21.2-54.2); Mean Corpuscular HGB Conc 32.9 GM/DL (32-36); Mean Corpuscular Volume 99.2 FL (87-102); Mean Platelet Volume 13.6 FL (9.6-12.0); Monocytes % 7.5 % (1.7-12.7); NRBC # 0.08 10*3/uL; Neutrophils % 76.4 % (38.7-73.9); Platelet Count 161 T/CUMM (130-400); Red Blood Count 3.68 MC/CUMM (3.8-5.5); Red Cell Distribution Width 13.3 % (9.3-17.3)
[2020-07-19 06:26] LABS: White Blood Count 12.8 T/CUMM (4-12)
[2020-07-19 06:43] LABS: Calcium 8.2 MG/DL (8.5-10.1); Ferritin 469.6 ng/ml (26-388); Osmolality,Calculated 312.5 MOS/KG (273-304)
[2020-07-19] MEDS: FLUDROCORTISONE 0.1 MG TABLET PER TUBE SCH ×3 (08:49→20:39)
[2020-07-19] MEDS: cilostazoL 100 MG TABLET PO SCH ×2 (08:49→20:39)
[2020-07-19] MEDS: FENOFIBRIC ACID 135 MG PO SCH (08:49)
[2020-07-19] MEDS: AMIODARONE 200 MG TABLET PO SCH ×2 (08:49→20:39)
[2020-07-19] MEDS: methylPREDNISolone SOD SUC 40 MG/1 ML VIAL IV SCH ×2 (08:49→20:38)
[2020-07-19] MEDS: DIPYRIDAMOLE/ASPIRIN 200-25 MG CAPSULE PO SCH ×2 (08:49→20:39)
[2020-07-19] MEDS: ENOXAPARIN 100 MG/ML SYRINGE SUBCUT SCH (08:49)
[2020-07-19] MEDS: ZINC GLUCONATE 50 MG TABLET PO SCH (08:52)
[2020-07-19] MEDS: NON-FORMULARY MEDICATION (Tiotropium-Olodaterol [Stiolto Respimat] 2.5-2.5 mcg/actuation m INH SCH (08:52)
[2020-07-19] MEDS: BISOPROLOL 5 MG TABLET PO SCH (08:52)
[2020-07-19] MEDS: ASCORBIC ACID 500 MG TABLET PO SCH ×2 (08:52→20:39)
[2020-07-19] MEDS: CHOLECALCIFEROL 1,000 UNIT TABLET PO SCH (08:52)
[2020-07-19] MEDS ORDERED: SODIUM POLYSTYRENE SULFATE 15 GM/60 ML BOTTLE PO STA (08:53)
[2020-07-19 08:58] LABS: Anisocytosis Slight; Band Neutrophils 9 % (0-10); Eosinophils 1 % (0-10); Lymphocytes 8 % (20-55); Macrocytosis Slight; Metamyelocytes 4 %; Platelet Estimate Normal; Segmented Neutrophils 70 % (50-85); Total Cells Counted 100
[2020-07-19 08:59] LABS: Giant Platelets Few
[2020-07-19] MEDS ORDERED: SODIUM POLYSTYRENE SULFATE 15 GM/60 ML BOTTLE PO ONE (11:23)
[2020-07-19] MEDS: NOREPINEPHRINE 8 MG in SODIUM CHLORIDE 0.9% 242 ML IV PRN (14:00)
[2020-07-19] MEDS: FAMOTIDINE 20 MG/2 ML VIAL IV SCH (20:38)
[2020-07-19] MEDS: SIMVASTATIN 20 MG TABLET PO SCH (20:39)
[2020-07-19] MEDS: SERTRALINE 25 MG TABLET PO SCH (20:39)
[2020-07-19] MEDS ORDERED: INSULIN GLARGINE 100 UNIT/ML SUBCUT SCH (21:00)
[2020-07-20] MEDS: INSULIN LISPRO 100 UNIT/ML SUBCUT SCH ×5 (02:05→23:48)
[2020-07-20] MEDS: ALBUTEROL INHALER 18 GM INH SCH ×4 (02:05→17:45)
[2020-07-20 04:38] LABS: ABG Base Excess -0.4 MMOL/L (-2.5-2.5); ABG HCO3 23.8 MMOL/L (20-26); ABG Oxygen Saturation 93.8 % (95-100); ABG PCO2 37.4 MM HG (35-48); ABG PH 7.422 (7.35-7.45); ABG PO2 73.1 MM HG (80-95); Allen Test Positive; Pt O2 Delivery Device Ventilator
[2020-07-20] MEDS: SODIUM CHLORIDE 0.9% 1,000 ML IV SCH ×5 (04:46→21:37)
[2020-07-20] MEDS: NOREPINEPHRINE 8 MG in SODIUM CHLORIDE 0.9% 242 ML IV PRN ×2 (06:36→19:39)
[2020-07-20] MEDS: FENOFIBRIC ACID 135 MG PO SCH (09:01)
[2020-07-20] MEDS: ASCORBIC ACID 500 MG TABLET PO SCH ×2 (09:11→20:06)
[2020-07-20] MEDS: ZINC GLUCONATE 50 MG TABLET PO SCH (09:12)
[2020-07-20] MEDS: FLUDROCORTISONE 0.1 MG TABLET PER TUBE SCH ×2 (09:12→20:06)
[2020-07-20] MEDS: BISOPROLOL 5 MG TABLET PO SCH (09:12)
[2020-07-20] MEDS: DIPYRIDAMOLE/ASPIRIN 200-25 MG CAPSULE PO SCH ×2 (09:12→20:06)
[2020-07-20] MEDS: CHOLECALCIFEROL 1,000 UNIT TABLET PO SCH (09:12)
[2020-07-20] MEDS: AMIODARONE 200 MG TABLET PO SCH ×2 (09:12→20:06)
[2020-07-20] MEDS: ENOXAPARIN 100 MG/ML SYRINGE SUBCUT SCH (09:12)
[2020-07-20] MEDS: methylPREDNISolone SOD SUC 40 MG/1 ML VIAL IV SCH ×3 (09:13→17:45)
[2020-07-20] MEDS: cilostazoL 100 MG TABLET PO SCH ×2 (09:14→20:06)
[2020-07-20] MEDS: NON-FORMULARY MEDICATION (Tiotropium-Olodaterol [Stiolto Respimat] 2.5-2.5 mcg/actuation m INH SCH (09:14)
[2020-07-20 10:24] LABS: Albumin 1.6 G/DL (3.4-5.0); Bilirubin,Total 0.4 MG/DL (0.2-1.0); Calcium 7.2 MG/DL (8.5-10.1); Osmolality,Calculated 315.3 MOS/KG (273-304); Total Protein 5.2 G/DL (6.4-8.3)
[2020-07-20 10:52] LABS: Basophils # 0.1 10*3/uL (0.0-0.2); Basophils % 0.2 % (0.0-0.8); Eosinophils # 0.1 10*3/uL (0.0-0.87); Eosinophils % 0.3 % (0.00-10.9); Hematocrit 26.3 VOL% (42.0-52.0); Hemoglobin 8.9 GM/DL (14.0-18.0); Immature Granulocytes % 10.4 %; Immature Granulocytes Absolute 2.22 #; Lymphocytes # 1.6 10*3/uL (1.4-4.0); Lymphocytes % 7.5 % (21.2-54.2); Mean Corpuscular HGB Conc 33.8 GM/DL (32-36); Mean Corpuscular Volume 99.2 FL (87-102); Mean Platelet Volume 13.4 FL (9.6-12.0); Monocytes % 8.9 % (1.7-12.7); NRBC # 0.37 10*3/uL; Neutrophils % 72.7 % (38.7-73.9); Platelet Count 188 T/CUMM (130-400); Red Blood Count 2.65 MC/CUMM (3.8-5.5); Red Cell Distribution Width 13.8 % (9.3-17.3); White Blood Count 21.4 T/CUMM (4-12)
[2020-07-20 11:13] LABS: Band Neutrophils 6 % (0-10); Eosinophils 1 % (0-10); Lymphocytes 8 % (20-55); Metamyelocytes 5 %; Myelocytes 4 %; Nucleated Red Blood Cells 3 (0-5); Platelet Estimate Normal; Promyelocytes 1 %; Segmented Neutrophils 69 % (50-85); Smudge Cells Few; Total Cells Counted 100
[2020-07-20 11:14] LABS: Anisocytosis 2+; Basophilic Stippling Slight; Giant Platelets Few; Macrocytosis Slight
[2020-07-20] MEDS ORDERED: DEXMEDETOMIDINE 200 MCG in SODIUM CHLORIDE 0.9% 48 ML IV PRN (12:08)
[2020-07-20] MEDS: DEXMEDETOMIDINE 400 MCG in SODIUM CHLORIDE 0.9% 96 ML IV PRN (17:50)
[2020-07-20] MEDS: SIMVASTATIN 20 MG TABLET PO SCH (20:06)
[2020-07-20] MEDS: SERTRALINE 25 MG TABLET PO SCH (20:06)
[2020-07-20] MEDS: FAMOTIDINE 20 MG/2 ML VIAL IV SCH (20:06)
[2020-07-20] MEDS: INSULIN GLARGINE 100 UNIT/ML SUBCUT SCH (20:07)
[2020-07-21] MEDS: ALBUTEROL INHALER 18 GM INH SCH ×4 (00:54→20:09)
[2020-07-21] MEDS: SODIUM CHLORIDE 0.9% 1,000 ML IV SCH ×3 (03:34→17:52)
[2020-07-21] MEDS: methylPREDNISolone SOD SUC 40 MG/1 ML VIAL IV SCH ×3 (03:40→17:50)
[2020-07-21 04:15] LABS: ABG Base Excess -2.2 MMOL/L (-2.5-2.5); ABG HCO3 22.1 MMOL/L (20-26); ABG Oxygen Saturation 93.6 % (95-100); ABG PCO2 35.3 MM HG (35-48); ABG PH 7.415 (7.35-7.45); ABG PO2 73.4 MM HG (80-95); ABG TCO2 23.2 MMOL/L (23-27); Allen Test Positive; Pt O2 Delivery Device Ventilator
[2020-07-21 04:26] LABS: Basophils % 0.2 % (0.0-0.8); Hematocrit 22.5 VOL% (42.0-52.0); Hemoglobin 7.5 GM/DL (14.0-18.0); Immature Granulocytes % 9.7 %; Immature Granulocytes Absolute 2.07 #; Lymphocytes # 1.2 10*3/uL (1.4-4.0); Lymphocytes % 5.5 % (21.2-54.2); Mean Corpuscular HGB Conc 33.3 GM/DL (32-36); Mean Corpuscular Volume 99.6 FL (87-102); Mean Platelet Volume 13.6 FL (9.6-12.0); Monocytes % 6.2 % (1.7-12.7); NRBC # 0.57 10*3/uL; Neutrophils % 78.4 % (38.7-73.9); Platelet Count 162 T/CUMM (130-400); Red Blood Count 2.26 MC/CUMM (3.8-5.5); Red Cell Distribution Width 13.5 % (9.3-17.3); White Blood Count 21.3 T/CUMM (4-12)
[2020-07-21 04:42] LABS: Albumin 1.5 G/DL (3.4-5.0); Bilirubin,Total 0.4 MG/DL (0.2-1.0); Calcium 7.1 MG/DL (8.5-10.1); Ferritin 339.9 ng/ml (26-388); Osmolality,Calculated 317.1 MOS/KG (273-304); Total Protein 4.9 G/DL (6.4-8.3)
[2020-07-21] MEDS: DEXMEDETOMIDINE 400 MCG in SODIUM CHLORIDE 0.9% 96 ML IV PRN ×2 (04:46→18:55)
[2020-07-21] MEDS: INSULIN LISPRO 100 UNIT/ML SUBCUT SCH ×3 (05:48→17:51)
[2020-07-21 06:38] LABS: Band Neutrophils 2 % (0-10); Hypochromasia Slight; Lymphocytes 5 % (20-55); Metamyelocytes 2 %; Nucleated Red Blood Cells 3 (0-5); Platelet Estimate Normal; Polychromasia 2+; Segmented Neutrophils 85 % (50-85); Total Cells Counted 100
[2020-07-21 07:15] LABS: PT Patient Result 10.7 SECS (9.8-11.9); Partial Thromboplastin Time 29.1 SECS (23.9-33.8)
[2020-07-21] MEDS: INSULIN GLARGINE 100 UNIT/ML SUBCUT SCH ×2 (08:04→20:11)
[2020-07-21] MEDS: ZINC GLUCONATE 50 MG TABLET PO SCH (08:04)
[2020-07-21] MEDS: AMIODARONE 200 MG TABLET PO SCH ×2 (08:04→20:10)
[2020-07-21] MEDS: FLUDROCORTISONE 0.1 MG TABLET PER TUBE SCH ×2 (08:04→20:10)
[2020-07-21] MEDS: ASCORBIC ACID 500 MG TABLET PO SCH ×2 (08:05→20:10)
[2020-07-21] MEDS: CHOLECALCIFEROL 1,000 UNIT TABLET PO SCH (08:05)
[2020-07-21] MEDS: FENOFIBRIC ACID 135 MG PO SCH (08:06)
[2020-07-21] MEDS: PIPERACILLIN/TAZOBACTAM 3,375 MG in SODIUM CHLORIDE 0.9% 100 ML IV SCH ×2 (08:06→14:47)
[2020-07-21] MEDS: BISOPROLOL 5 MG TABLET PO SCH (08:07)
[2020-07-21] MEDS: NON-FORMULARY MEDICATION (Tiotropium-Olodaterol [Stiolto Respimat] 2.5-2.5 mcg/actuation m INH SCH (09:08)
[2020-07-21 10:32] LABS: Bilirubin,Urine Negative (Negative); Blood, Urine Moderate mg/dL (Negative); Glucose,Urine (UA) >=500 mg/dL (Negative); Ketones,Urine Negative (Negative); Mucus,Urine Occasional /LPF (Occasional); Nitrite,Urine Negative (Negative); Protein,Urine Negative; RBC,Urine 67 /HPF (0-4); Squamous Epithelial Cell,Urine Occasional /HPF (0-10); Urine Appearance Slightly Hazy (Clear); Urine Color Yellow (Yellow); Urine Specific Gravity 1.018 (1.001-1.035); Urine Urobilinogen < 2.0 EU/DL (0.2-1.0); WBC,Urine 2 /HPF (0-6)
[2020-07-21] MEDS: NOREPINEPHRINE 8 MG in SODIUM CHLORIDE 0.9% 242 ML IV PRN (11:23)
[2020-07-21 17:35] LABS: Hematocrit 27.1 VOL% (42.0-52.0); Hemoglobin 9.1 GM/DL (14.0-18.0)
[2020-07-21] MEDS: FAMOTIDINE 20 MG/2 ML VIAL IV SCH (20:10)
[2020-07-21] MEDS: SERTRALINE 25 MG TABLET PO SCH (20:10)
[2020-07-21] MEDS: SIMVASTATIN 20 MG TABLET PO SCH (20:10)
[2020-07-22] MEDS: SODIUM CHLORIDE 0.9% 1,000 ML IV SCH ×5 (00:45→22:19)
[2020-07-22] MEDS: PIPERACILLIN/TAZOBACTAM 3,375 MG in SODIUM CHLORIDE 0.9% 100 ML IV SCH ×4 (00:47→22:55)
[2020-07-22] MEDS: INSULIN LISPRO 100 UNIT/ML SUBCUT SCH ×4 (00:47→17:26)
[2020-07-22] MEDS: ALBUTEROL INHALER 18 GM INH SCH ×4 (02:35→20:24)
[2020-07-22] MEDS: methylPREDNISolone SOD SUC 40 MG/1 ML VIAL IV SCH ×3 (03:01→17:26)
[2020-07-22 04:06] LABS: Basophils % 0.2 % (0.0-0.8); Hemoglobin 8.8 GM/DL (14.0-18.0); Immature Granulocytes % 7.2 %; Immature Granulocytes Absolute 1.42 #; Lymphocytes # 0.7 10*3/uL (1.4-4.0); Lymphocytes % 3.7 % (21.2-54.2); Mean Corpuscular HGB Conc 33.8 GM/DL (32-36); Mean Corpuscular Volume 95.6 FL (87-102); Monocytes % 5.5 % (1.7-12.7); NRBC # 0.36 10*3/uL; Neutrophils % 83.4 % (38.7-73.9); Platelet Count 167 T/CUMM (130-400); Red Cell Distribution Width 15.3 % (9.3-17.3); White Blood Count 19.7 T/CUMM (4-12)
[2020-07-22 04:13] LABS: Red Blood Count 2.72 MC/CUMM (3.8-5.5)
[2020-07-22 04:13] LABS: ABG Base Excess -1.1 MMOL/L (-2.5-2.5); ABG HCO3 23.5 MMOL/L (20-26); ABG Oxygen Saturation 96.1 % (95-100); ABG PCO2 41.5 MM HG (35-48); ABG PH 7.372 (7.35-7.45); ABG PO2 82.5 MM HG (80-95); ABG TCO2 22.3 MMOL/L (23-27)
[2020-07-22 04:45] LABS: Albumin 1.6 G/DL (3.4-5.0); Bilirubin,Total 0.5 MG/DL (0.2-1.0); Calcium 7.6 MG/DL (8.5-10.1); Osmolality,Calculated 309.8 MOS/KG (273-304); Total Protein 5.1 G/DL (6.4-8.3)
[2020-07-22 04:54] LABS: Lymphocytes 2 % (20-55); Metamyelocytes 2 %; Nucleated Red Blood Cells 1 (0-5); Segmented Neutrophils 91 % (50-85); Total Cells Counted 100
[2020-07-22 04:55] LABS: Hypochromasia 1+; Platelet Estimate Normal
[2020-07-22] MEDS: DEXMEDETOMIDINE 400 MCG in SODIUM CHLORIDE 0.9% 96 ML IV PRN ×2 (08:00→22:24)
[2020-07-22] MEDS: INSULIN GLARGINE 100 UNIT/ML SUBCUT SCH ×2 (08:01→22:19)
[2020-07-22] MEDS: ZINC GLUCONATE 50 MG TABLET PO SCH (08:02)
[2020-07-22] MEDS: CHOLECALCIFEROL 1,000 UNIT TABLET PO SCH (08:02)
[2020-07-22] MEDS: ASCORBIC ACID 500 MG TABLET PO SCH ×2 (08:03→22:19)
[2020-07-22] MEDS: FENOFIBRIC ACID 135 MG PO SCH (08:03)
[2020-07-22] MEDS: AMIODARONE 200 MG TABLET PO SCH ×2 (08:03→22:20)
[2020-07-22] MEDS: FLUDROCORTISONE 0.1 MG TABLET PER TUBE SCH ×2 (08:03→22:18)
[2020-07-22] MEDS: NON-FORMULARY MEDICATION (Tiotropium-Olodaterol [Stiolto Respimat] 2.5-2.5 mcg/actuation m INH SCH ×2 (08:04→08:05)
[2020-07-22] MEDS: NOREPINEPHRINE 8 MG in SODIUM CHLORIDE 0.9% 242 ML IV PRN (12:28)
[2020-07-22] MEDS: ALBUMIN 25% 25 GM in PREMIX 1 EACH IV SCH ×2 (15:58→22:49)
[2020-07-22] MEDS: SIMVASTATIN 20 MG TABLET PO SCH (22:19)
[2020-07-22] MEDS: FAMOTIDINE 20 MG/2 ML VIAL IV SCH (22:19)
[2020-07-22] MEDS: SERTRALINE 25 MG TABLET PO SCH (22:19)
[2020-07-23] MEDS: ALBUTEROL INHALER 18 GM INH SCH ×4 (00:28→18:16)
[2020-07-23] MEDS: SODIUM CHLORIDE 0.9% 1,000 ML IV SCH ×3 (00:43→23:26)
[2020-07-23] MEDS: INSULIN LISPRO 100 UNIT/ML SUBCUT SCH ×4 (00:44→17:30)
[2020-07-23] MEDS: methylPREDNISolone SOD SUC 40 MG/1 ML VIAL IV SCH ×3 (01:56→17:42)
[2020-07-23 03:40] LABS: ABG Base Excess -2.1 MMOL/L (-2.5-2.5); ABG Oxygen Saturation 96.3 % (95-100); ABG PCO2 40.6 MM HG (35-48); ABG PH 7.371 (7.35-7.45); ABG PO2 91.8 MM HG (80-95); ABG TCO2 24.2 MMOL/L (23-27)
[2020-07-23] MEDS: ALBUMIN 25% 25 GM in PREMIX 1 EACH IV SCH ×4 (04:14→21:24)
[2020-07-23 04:45] LABS: Basophils % 0.1 % (0.0-0.8); Hematocrit 21.6 VOL% (42.0-52.0); Immature Granulocytes % 5.2 %; Lymphocytes # 0.4 10*3/uL (1.4-4.0); Mean Corpuscular HGB Conc 32.9 GM/DL (32-36); Mean Platelet Volume 12.4 FL (9.6-12.0); Monocytes % 5.8 % (1.7-12.7); NRBC # 0.19 10*3/uL; Neutrophils % 84.9 % (38.7-73.9); Platelet Count 125 T/CUMM (130-400); Red Cell Distribution Width 15.9 % (9.3-17.3); White Blood Count 9.7 T/CUMM (4-12)
[2020-07-23 04:51] LABS: Hemoglobin 7.1 GM/DL (14.0-18.0); Red Blood Count 2.16 MC/CUMM (3.8-5.5)
[2020-07-23 05:12] LABS: Calcium 7.6 MG/DL (8.5-10.1); Osmolality,Calculated 305.7 MOS/KG (273-304)
[2020-07-23 08:25] LABS: Band Neutrophils 1 % (0-10); Lymphocytes 5 % (20-55); Metamyelocytes 3 %; Segmented Neutrophils 87 % (50-85); Total Cells Counted 100
[2020-07-23 08:26] LABS: Anisocytosis 1+; Hypochromasia 2+; Macrocytosis 1+; Platelet Estimate Decreased; Polychromasia Few
[2020-07-23] MEDS: PIPERACILLIN/TAZOBACTAM 3,375 MG in SODIUM CHLORIDE 0.9% 100 ML IV SCH ×2 (08:39→15:45)
[2020-07-23] MEDS: INSULIN GLARGINE 100 UNIT/ML SUBCUT SCH ×2 (08:42→20:23)
[2020-07-23] MEDS: ASCORBIC ACID 500 MG TABLET PO SCH ×2 (08:43→20:22)
[2020-07-23] MEDS: CHOLECALCIFEROL 1,000 UNIT TABLET PO SCH (08:43)
[2020-07-23] MEDS: FLUDROCORTISONE 0.1 MG TABLET PER TUBE SCH ×2 (08:43→20:24)
[2020-07-23] MEDS: ZINC GLUCONATE 50 MG TABLET PO SCH (08:43)
[2020-07-23] MEDS: AMIODARONE 200 MG TABLET PO SCH (08:44)
[2020-07-23] MEDS: FENOFIBRIC ACID 135 MG PO SCH (10:42)
[2020-07-23] MEDS ORDERED: SODIUM CHLORIDE 0.9% 1,000 ML IV PRN (11:13)
[2020-07-23] MEDS ORDERED: FUROSEMIDE 40 MG/4 ML VIAL IV SCH (11:30)
[2020-07-23] MEDS: NON-FORMULARY MEDICATION (Tiotropium-Olodaterol [Stiolto Respimat] 2.5-2.5 mcg/actuation m INH SCH (11:38)
[2020-07-23 20:16] LABS: Hematocrit 27.3 VOL% (42.0-52.0)
[2020-07-23] MEDS: FAMOTIDINE 20 MG/2 ML VIAL IV SCH (20:23)
[2020-07-23] MEDS: SERTRALINE 25 MG TABLET PO SCH (20:23)
[2020-07-23] MEDS: SIMVASTATIN 20 MG TABLET PO SCH (20:23)
[2020-07-24] MEDS: PIPERACILLIN/TAZOBACTAM 3,375 MG in SODIUM CHLORIDE 0.9% 100 ML IV SCH ×4 (00:33→23:44)
[2020-07-24] MEDS: INSULIN LISPRO 100 UNIT/ML SUBCUT SCH ×4 (00:34→17:40)
[2020-07-24] MEDS: ALBUTEROL INHALER 18 GM INH SCH ×4 (01:20→19:29)
[2020-07-24] MEDS: methylPREDNISolone SOD SUC 40 MG/1 ML VIAL IV SCH ×3 (02:55→17:39)
[2020-07-24 05:05] LABS: ABG Base Excess 2.1 MMOL/L (-2.5-2.5); ABG HCO3 26.2 MMOL/L (20-26); ABG Oxygen Saturation 95.7 % (95-100); ABG PCO2 40.4 MM HG (35-48); ABG PH 7.426 (7.35-7.45); ABG PO2 73.7 MM HG (80-95); ABG TCO2 24.5 MMOL/L (23-27)
[2020-07-24 05:31] LABS: Calcium 8.4 MG/DL (8.5-10.1); Osmolality,Calculated 306.1 MOS/KG (273-304)
[2020-07-24 05:42] LABS: Basophils % 0.1 % (0.0-0.8); Hemoglobin 8.6 GM/DL (14.0-18.0); Immature Granulocytes % 3.3 %; Immature Granulocytes Absolute 0.35 #; Lymphocytes # 0.4 10*3/uL (1.4-4.0); Mean Corpuscular HGB Conc 33.1 GM/DL (32-36); Mean Corpuscular Volume 97.4 FL (87-102); Monocytes % 5.2 % (1.7-12.7); NRBC # 0.21 10*3/uL; Neutrophils % 87.4 % (38.7-73.9); Platelet Count 136 T/CUMM (130-400); Red Blood Count 2.67 MC/CUMM (3.8-5.5); Red Cell Distribution Width 15.9 % (9.3-17.3); White Blood Count 10.6 T/CUMM (4-12)
[2020-07-24] MEDS: SODIUM CHLORIDE 0.9% 1,000 ML IV SCH ×3 (06:09→17:38)
[2020-07-24 06:19] LABS: Band Neutrophils 12 % (0-10); Lymphocytes 7 % (20-55); Metamyelocytes 2 %; Nucleated Red Blood Cells 3 (0-5); Platelet Estimate Adequate; Segmented Neutrophils 77 % (50-85); Total Cells Counted 100
[2020-07-24 06:20] LABS: Anisocytosis 2+; Polychromasia Slight
[2020-07-24] MEDS: FLUDROCORTISONE 0.1 MG TABLET PER TUBE SCH (08:01)
[2020-07-24] MEDS: ZINC GLUCONATE 50 MG TABLET PO SCH (08:01)
[2020-07-24] MEDS: CHOLECALCIFEROL 1,000 UNIT TABLET PO SCH (08:01)
[2020-07-24] MEDS: AMIODARONE 200 MG TABLET PO SCH (08:01)
[2020-07-24] MEDS: ASCORBIC ACID 500 MG TABLET PO SCH ×2 (08:02→21:06)
[2020-07-24] MEDS: FENOFIBRIC ACID 135 MG PO SCH (08:02)
[2020-07-24] MEDS: INSULIN GLARGINE 100 UNIT/ML SUBCUT SCH (08:02)
[2020-07-24] MEDS: NON-FORMULARY MEDICATION (Tiotropium-Olodaterol [Stiolto Respimat] 2.5-2.5 mcg/actuation m INH SCH (08:02)
[2020-07-24] MEDS: fentaNYL 25 MCG/HR PATCH TRANSDERM SCH (11:34)
[2020-07-24] MEDS: DEXTROSE 50% 25 GM/50 ML VIAL IV PRN ×2 (11:35→17:39)
[2020-07-24] MEDS: SERTRALINE 25 MG TABLET PO SCH (21:05)
[2020-07-24] MEDS: SIMVASTATIN 20 MG TABLET PO SCH (21:05)
[2020-07-24] MEDS: FAMOTIDINE 20 MG/2 ML VIAL IV SCH (21:05)
[2020-07-24] MEDS: HALOPERIDOL 5 MG/ML AMP IV PRN (21:06)
[2020-07-25] MEDS: INSULIN LISPRO 100 UNIT/ML SUBCUT SCH ×5 (00:04→23:44)
[2020-07-25] MEDS: ALBUTEROL INHALER 18 GM INH SCH ×4 (00:23→21:01)
[2020-07-25] MEDS: HALOPERIDOL 5 MG/ML AMP IV PRN (02:20)
[2020-07-25] MEDS: methylPREDNISolone SOD SUC 40 MG/1 ML VIAL IV SCH ×3 (03:10→22:39)
[2020-07-25] MEDS: SODIUM CHLORIDE 0.9% 1,000 ML IV SCH ×3 (03:38→16:16)
[2020-07-25 04:52] LABS: ABG Base Excess 2.7 MMOL/L (-2.5-2.5); ABG HCO3 27.9 MMOL/L (20-26); ABG Oxygen Saturation 95.8 % (95-100); ABG PH 7.401 (7.35-7.45); ABG PO2 85.1 MM HG (80-95); ABG TCO2 29.3 MMOL/L (23-27); Allen Test Positive
[2020-07-25 06:08] LABS: Basophils % 0.1 % (0.0-0.8); Hematocrit 30.4 VOL% (42.0-52.0); Immature Granulocytes % 2.3 %; Immature Granulocytes Absolute 0.29 #; Lymphocytes # 0.5 10*3/uL (1.4-4.0); Lymphocytes % 4.3 % (21.2-54.2); Mean Corpuscular HGB Conc 32.9 GM/DL (32-36); Mean Corpuscular Volume 98.7 FL (87-102); Mean Platelet Volume 12.5 FL (9.6-12.0); Monocytes % 6.1 % (1.7-12.7); NRBC # 0.09 10*3/uL; Neutrophils % 87.2 % (38.7-73.9); Platelet Count 134 T/CUMM (130-400); Red Blood Count 3.08 MC/CUMM (3.8-5.5); Red Cell Distribution Width 16.5 % (9.3-17.3); White Blood Count 12.6 T/CUMM (4-12)
[2020-07-25 06:40] LABS: Band Neutrophils 1 % (0-10); Lymphocytes 5 % (20-55); Nucleated Red Blood Cells 1 (0-5); Platelet Estimate Normal; Segmented Neutrophils 92 % (50-85); Total Cells Counted 100
[2020-07-25 07:09] LABS: Calcium 8.3 MG/DL (8.5-10.1)
[2020-07-25] MEDS: PIPERACILLIN/TAZOBACTAM 3,375 MG in SODIUM CHLORIDE 0.9% 100 ML IV SCH ×2 (10:12→15:10)
[2020-07-25] MEDS: INSULIN GLARGINE 100 UNIT/ML SUBCUT SCH (10:12)
[2020-07-25] MEDS: AMIODARONE 200 MG TABLET PO SCH (10:12)
[2020-07-25] MEDS: FENOFIBRIC ACID 135 MG PO SCH (10:12)
[2020-07-25] MEDS: ASCORBIC ACID 500 MG TABLET PO SCH ×2 (10:15→21:00)
[2020-07-25] MEDS: CHOLECALCIFEROL 1,000 UNIT TABLET PO SCH (10:15)
[2020-07-25] MEDS: NON-FORMULARY MEDICATION (Tiotropium-Olodaterol [Stiolto Respimat] 2.5-2.5 mcg/actuation m INH SCH (10:15)
[2020-07-25] MEDS: ZINC GLUCONATE 50 MG TABLET PO SCH (10:16)
[2020-07-25] MEDS: DIPYRIDAMOLE/ASPIRIN 200-25 MG CAPSULE PO SCH ×2 (21:00→22:55)
[2020-07-25] MEDS: SIMVASTATIN 20 MG TABLET PO SCH (21:00)
[2020-07-25] MEDS: SERTRALINE 25 MG TABLET PO SCH (21:00)
[2020-07-25] MEDS: FAMOTIDINE 20 MG/2 ML VIAL IV SCH (21:00)
[2020-07-26] MEDS: PIPERACILLIN/TAZOBACTAM 3,375 MG in SODIUM CHLORIDE 0.9% 100 ML IV SCH ×4 (00:05→23:26)
[2020-07-26] MEDS: SODIUM CHLORIDE 0.9% 1,000 ML IV SCH ×4 (00:05→21:56)
[2020-07-26] MEDS: ALBUTEROL INHALER 18 GM INH SCH ×4 (00:08→21:12)
[2020-07-26] MEDS: methylPREDNISolone SOD SUC 40 MG/1 ML VIAL IV SCH ×3 (02:30→17:12)
[2020-07-26 02:51] LABS: ABG Base Excess 3.2 MMOL/L (-2.5-2.5); ABG HCO3 27.3 MMOL/L (20-26); ABG Oxygen Saturation 97.7 % (95-100); ABG PCO2 55.9 MM HG (35-48); ABG PO2 96.2 MM HG (80-95); ABG TCO2 27.4 MMOL/L (23-27); Allen Test Positive
[2020-07-26 06:15] LABS: Basophils % 0.1 % (0.0-0.8); Eosinophils % 0.2 % (0.00-10.9); Hematocrit 34.7 VOL% (42.0-52.0); Hemoglobin 11.2 GM/DL (14.0-18.0); Immature Granulocytes % 1.5 %; Immature Granulocytes Absolute 0.18 #; Lymphocytes # 0.3 10*3/uL (1.4-4.0); Lymphocytes % 2.2 % (21.2-54.2); Mean Corpuscular HGB Conc 32.3 GM/DL (32-36); Mean Corpuscular Volume 101.5 FL (87-102); Mean Platelet Volume 12.5 FL (9.6-12.0); Monocytes % 3.9 % (1.7-12.7); NRBC # 0.05 10*3/uL; Neutrophils % 92.1 % (38.7-73.9); Platelet Count 137 T/CUMM (130-400); Red Blood Count 3.42 MC/CUMM (3.8-5.5); Red Cell Distribution Width 16.5 % (9.3-17.3); White Blood Count 12.1 T/CUMM (4-12)
[2020-07-26 06:21] LABS: Calcium 8.4 MG/DL (8.5-10.1); Osmolality,Calculated 290.1 MOS/KG (273-304)
[2020-07-26 07:35] LABS: Band Neutrophils 1 % (0-10); Eosinophils 1 % (0-10); Lymphocytes 2 % (20-55); Segmented Neutrophils 91 % (50-85); Total Cells Counted 100
[2020-07-26 07:36] LABS: Hypochromasia 2+; Macrocytosis 1+; Platelet Estimate Adequate; Polychromasia Slight
[2020-07-26] MEDS: INSULIN LISPRO 100 UNIT/ML SUBCUT SCH ×3 (07:51→17:02)
[2020-07-26] MEDS: DIPYRIDAMOLE/ASPIRIN 200-25 MG CAPSULE PO SCH ×2 (08:02→21:38)
[2020-07-26] MEDS: AMIODARONE 200 MG TABLET PO SCH (08:03)
[2020-07-26] MEDS: FENOFIBRIC ACID 135 MG PO SCH (08:03)
[2020-07-26] MEDS: INSULIN GLARGINE 100 UNIT/ML SUBCUT SCH (08:03)
[2020-07-26] MEDS: NON-FORMULARY MEDICATION (Tiotropium-Olodaterol [Stiolto Respimat] 2.5-2.5 mcg/actuation m INH SCH (08:03)
[2020-07-26] MEDS: ASCORBIC ACID 500 MG TABLET PO SCH ×2 (08:04→21:57)
[2020-07-26] MEDS: ZINC GLUCONATE 50 MG TABLET PO SCH (08:04)
[2020-07-26] MEDS: CHOLECALCIFEROL 1,000 UNIT TABLET PO SCH (08:04)
[2020-07-26] MEDS ORDERED: FUROSEMIDE 40 MG/4 ML VIAL IV ONE (14:28)
[2020-07-26] MEDS: HALOPERIDOL 5 MG/ML AMP IV PRN (14:58)
[2020-07-26] MEDS: FAMOTIDINE 20 MG/2 ML VIAL IV SCH (21:57)
[2020-07-26] MEDS: SIMVASTATIN 20 MG TABLET PO SCH (21:57)
[2020-07-26] MEDS: SERTRALINE 25 MG TABLET PO SCH (21:57)
[2020-07-27] MEDS: ALBUTEROL INHALER 18 GM INH SCH ×4 (00:46→21:13)
[2020-07-27] MEDS: INSULIN LISPRO 100 UNIT/ML SUBCUT SCH ×5 (02:25→23:27)
[2020-07-27] MEDS: methylPREDNISolone SOD SUC 40 MG/1 ML VIAL IV SCH ×3 (02:26→17:33)
[2020-07-27 05:57] LABS: Albumin 2.5 G/DL (3.4-5.0); Bilirubin,Total 1.9 MG/DL (0.2-1.0); Calcium 8.2 MG/DL (8.5-10.1); Osmolality,Calculated 289.5 MOS/KG (273-304); Total Protein 5.6 G/DL (6.4-8.3)
[2020-07-27] MEDS: fentaNYL 25 MCG/HR PATCH TRANSDERM SCH (09:01)
[2020-07-27] MEDS: PIPERACILLIN/TAZOBACTAM 3,375 MG in SODIUM CHLORIDE 0.9% 100 ML IV SCH ×3 (09:02→23:16)
[2020-07-27] MEDS: FUROSEMIDE 40 MG/4 ML VIAL IV SCH (09:02)
[2020-07-27] MEDS: AMIODARONE 200 MG TABLET PO SCH (09:40)
[2020-07-27] MEDS: FENOFIBRIC ACID 135 MG PO SCH (09:40)
[2020-07-27] MEDS: DIPYRIDAMOLE/ASPIRIN 200-25 MG CAPSULE PO SCH ×2 (09:40→23:09)
[2020-07-27] MEDS: INSULIN GLARGINE 100 UNIT/ML SUBCUT SCH (09:41)
[2020-07-27] MEDS: ASCORBIC ACID 500 MG TABLET PO SCH ×2 (09:41→23:10)
[2020-07-27] MEDS: NON-FORMULARY MEDICATION (Tiotropium-Olodaterol [Stiolto Respimat] 2.5-2.5 mcg/actuation m INH SCH (09:41)
[2020-07-27] MEDS: ZINC GLUCONATE 50 MG TABLET PO SCH (09:41)
[2020-07-27] MEDS: CHOLECALCIFEROL 1,000 UNIT TABLET PO SCH (09:41)
[2020-07-27] MEDS: HALOPERIDOL 5 MG/ML AMP IV PRN (15:13)
[2020-07-27] MEDS: SODIUM CHLORIDE 0.9% 1,000 ML IV SCH (21:13)
[2020-07-27] MEDS: FAMOTIDINE 20 MG/2 ML VIAL IV SCH (23:09)
[2020-07-27] MEDS: SIMVASTATIN 20 MG TABLET PO SCH (23:10)
[2020-07-28] MEDS: ALBUTEROL INHALER 18 GM INH SCH ×3 (00:42→14:40)
[2020-07-28] MEDS: methylPREDNISolone SOD SUC 40 MG/1 ML VIAL IV SCH ×3 (04:42→18:52)
[2020-07-28] MEDS: INSULIN LISPRO 100 UNIT/ML SUBCUT SCH ×3 (06:14→18:51)
[2020-07-28] MEDS: NON-FORMULARY MEDICATION (Tiotropium-Olodaterol [Stiolto Respimat] 2.5-2.5 mcg/actuation m INH SCH (09:01)
[2020-07-28] MEDS: ZINC GLUCONATE 50 MG TABLET PO SCH (09:14)
[2020-07-28] MEDS: AMIODARONE 200 MG TABLET PO SCH (09:14)
[2020-07-28] MEDS: CHOLECALCIFEROL 1,000 UNIT TABLET PO SCH (09:14)
[2020-07-28] MEDS: DIPYRIDAMOLE/ASPIRIN 200-25 MG CAPSULE PO SCH (09:14)
[2020-07-28] MEDS: ASCORBIC ACID 500 MG TABLET PO SCH ×2 (09:15→21:43)
[2020-07-28] MEDS: FUROSEMIDE 40 MG/4 ML VIAL IV SCH (09:17)
[2020-07-28] MEDS: INSULIN GLARGINE 100 UNIT/ML SUBCUT SCH (09:17)
[2020-07-28] MEDS: PIPERACILLIN/TAZOBACTAM 3,375 MG in SODIUM CHLORIDE 0.9% 100 ML IV SCH ×3 (09:18→23:30)
[2020-07-28] MEDS: FENOFIBRIC ACID 135 MG PO SCH (09:49)
[2020-07-28] MEDS: SPIRONOLACTONE 25 MG TABLET PO SCH (18:05)
[2020-07-28] MEDS: FAMOTIDINE 20 MG/2 ML VIAL IV SCH (21:43)
[2020-07-28] MEDS: SIMVASTATIN 20 MG TABLET PO SCH (21:43)
[2020-07-29] MEDS: DIPYRIDAMOLE/ASPIRIN 200-25 MG CAPSULE PO SCH ×2 (00:27→10:00)
[2020-07-29] MEDS: ALBUTEROL INHALER 18 GM INH SCH ×4 (00:27→13:00)
[2020-07-29] MEDS: methylPREDNISolone SOD SUC 40 MG/1 ML VIAL IV SCH ×3 (03:03→17:37)
[2020-07-29] MEDS: INSULIN LISPRO 100 UNIT/ML SUBCUT SCH ×4 (03:04→17:17)
[2020-07-29 05:50] LABS: Basophils % 0.1 % (0.0-0.8); Hematocrit 38.5 VOL% (42.0-52.0); Hemoglobin 12.5 GM/DL (14.0-18.0); Immature Granulocytes % 0.6 %; Immature Granulocytes Absolute 0.07 #; Lymphocytes # 0.2 10*3/uL (1.4-4.0); Lymphocytes % 1.3 % (21.2-54.2); Mean Corpuscular HGB Conc 32.5 GM/DL (32-36); Mean Corpuscular Volume 100.5 FL (87-102); Mean Platelet Volume 13.4 FL (9.6-12.0); Monocytes % 3.8 % (1.7-12.7); Neutrophils % 94.2 % (38.7-73.9); Red Blood Count 3.83 MC/CUMM (3.8-5.5); Red Cell Distribution Width 16.3 % (9.3-17.3); White Blood Count 11.3 T/CUMM (4-12)
[2020-07-29 06:00] LABS: Platelet Count 87 T/CUMM (130-400)
[2020-07-29 06:10] LABS: Calcium 8.5 MG/DL (8.5-10.1)
[2020-07-29 06:26] LABS: Lymphocytes 1 % (20-55); Platelet Estimate Decreased; Segmented Neutrophils 96 % (50-85); Total Cells Counted 100
[2020-07-29 06:27] LABS: Hypochromasia 1+; Microcytosis 1+
[2020-07-29 08:24] LABS: Albumin 2.5 G/DL (3.4-5.0); Bilirubin,Total 1.3 MG/DL (0.2-1.0); Calcium 8.7 MG/DL (8.5-10.1); Osmolality,Calculated 288.8 MOS/KG (273-304); Total Protein 5.8 G/DL (6.4-8.3)
[2020-07-29] MEDS: ZINC GLUCONATE 50 MG TABLET PO SCH (10:00)
[2020-07-29] MEDS: AMIODARONE 200 MG TABLET PO SCH (10:00)
[2020-07-29] MEDS: CHOLECALCIFEROL 1,000 UNIT TABLET PO SCH (10:00)
[2020-07-29] MEDS: ASCORBIC ACID 500 MG TABLET PO SCH (10:00)
[2020-07-29] MEDS: FENOFIBRIC ACID 135 MG PO SCH (10:00)
[2020-07-29] MEDS: NON-FORMULARY MEDICATION (Tiotropium-Olodaterol [Stiolto Respimat] 2.5-2.5 mcg/actuation m INH SCH (10:00)
[2020-07-29] MEDS: SPIRONOLACTONE 25 MG TABLET PO SCH (10:00)
[2020-07-29] MEDS: PIPERACILLIN/TAZOBACTAM 3,375 MG in SODIUM CHLORIDE 0.9% 100 ML IV SCH ×3 (10:08→22:55)
[2020-07-29] MEDS: FUROSEMIDE 40 MG/4 ML VIAL IV SCH (10:08)
[2020-07-29] MEDS: INSULIN GLARGINE 100 UNIT/ML SUBCUT SCH (10:08)
[2020-07-29] MEDS: FAT EMULSION 20% 250 ML IV SCH (15:57)
[2020-07-29] MEDS ORDERED: AMINO ACIDS/DEXT/LYTES 5-15% 2,000 ML IV SCH (17:00)
[2020-07-29] MEDS: FAMOTIDINE 20 MG/2 ML VIAL IV SCH (21:53)
[2020-07-30] MEDS: ALBUTEROL INHALER 18 GM INH SCH ×5 (01:29→20:38)
[2020-07-30] MEDS: INSULIN LISPRO 100 UNIT/ML SUBCUT SCH ×7 (01:47→23:52)
[2020-07-30] MEDS: methylPREDNISolone SOD SUC 40 MG/1 ML VIAL IV SCH ×5 (01:48→17:00)
[2020-07-30] MEDS ORDERED: AMIODARONE INJ 150 MG in DEXTROSE 5% 100 ML IV ONE (04:00)
[2020-07-30] MEDS ORDERED: AMIODARONE INJ 450 MG in DEXTROSE 5% 241 ML IV SCH (04:20)
[2020-07-30] MEDS: SIMVASTATIN 20 MG TABLET PO SCH ×2 (04:50→20:38)
[2020-07-30] MEDS: DIPYRIDAMOLE/ASPIRIN 200-25 MG CAPSULE PO SCH ×3 (04:50→20:38)
[2020-07-30] MEDS: ASCORBIC ACID 500 MG TABLET PO SCH ×3 (04:50→20:38)
[2020-07-30 05:50] LABS: Basophils % 0.1 % (0.0-0.8); Hematocrit 38.1 VOL% (42.0-52.0); Hemoglobin 12.8 GM/DL (14.0-18.0); Immature Granulocytes % 0.6 %; Immature Granulocytes Absolute 0.07 #; Lymphocytes # 0.2 10*3/uL (1.4-4.0); Lymphocytes % 1.5 % (21.2-54.2); Mean Corpuscular HGB Conc 33.6 GM/DL (32-36); Mean Corpuscular Volume 97.4 FL (87-102); Mean Platelet Volume 12.2 FL (9.6-12.0); Monocytes % 7.4 % (1.7-12.7); Neutrophils % 90.4 % (38.7-73.9); Platelet Count 126 T/CUMM (130-400); Red Blood Count 3.91 MC/CUMM (3.8-5.5); Red Cell Distribution Width 16.1 % (9.3-17.3); White Blood Count 12.4 T/CUMM (4-12)
[2020-07-30 06:16] LABS: Calcium 8.6 MG/DL (8.5-10.1); Calcium 8.7 MG/DL (8.5-10.1); Osmolality,Calculated 290.5 MOS/KG (273-304)
[2020-07-30 06:24] LABS: Band Neutrophils 1 % (0-10); Lymphocytes 2 % (20-55); Platelet Estimate Normal; Segmented Neutrophils 91 % (50-85); Total Cells Counted 100
[2020-07-30] MEDS: PIPERACILLIN/TAZOBACTAM 3,375 MG in SODIUM CHLORIDE 0.9% 100 ML IV SCH ×3 (08:02→23:50)
[2020-07-30] MEDS: fentaNYL 25 MCG/HR PATCH TRANSDERM SCH (08:03)
[2020-07-30] MEDS: INSULIN GLARGINE 100 UNIT/ML SUBCUT SCH (08:04)
[2020-07-30] MEDS: FUROSEMIDE 40 MG/4 ML VIAL IV SCH (08:04)
[2020-07-30] MEDS: SPIRONOLACTONE 25 MG TABLET PO SCH (08:13)
[2020-07-30] MEDS: NON-FORMULARY MEDICATION (Tiotropium-Olodaterol [Stiolto Respimat] 2.5-2.5 mcg/actuation m INH SCH (08:13)
[2020-07-30] MEDS: CHOLECALCIFEROL 1,000 UNIT TABLET PO SCH (08:13)
[2020-07-30] MEDS: FENOFIBRIC ACID 135 MG PO SCH (08:13)
[2020-07-30] MEDS: ZINC GLUCONATE 50 MG TABLET PO SCH (08:13)
[2020-07-30] MEDS: AMIODARONE 200 MG TABLET PO SCH (08:13)
[2020-07-30] MEDS: SODIUM CHLORIDE 0.9% 1,000 ML IV SCH (10:38)
[2020-07-30] MEDS: AMIODARONE INJ 450 MG in DEXTROSE 5% 241 ML IV SCH (13:26)
[2020-07-30] MEDS: FAT EMULSION 20% 250 ML IV SCH (15:54)
[2020-07-30] MEDS: FAMOTIDINE 20 MG/2 ML VIAL IV SCH (20:39)
[2020-07-31] MEDS: methylPREDNISolone SOD SUC 40 MG/1 ML VIAL IV SCH ×3 (02:23→17:14)
[2020-07-31] MEDS: ALBUTEROL INHALER 18 GM INH SCH ×4 (02:25→20:58)
[2020-07-31] MEDS: AMIODARONE INJ 450 MG in DEXTROSE 5% 241 ML IV SCH ×2 (05:59→21:37)
[2020-07-31] MEDS: INSULIN LISPRO 100 UNIT/ML SUBCUT SCH ×3 (06:41→17:14)
[2020-07-31] MEDS: PIPERACILLIN/TAZOBACTAM 3,375 MG in SODIUM CHLORIDE 0.9% 100 ML IV SCH ×2 (07:37→15:32)
[2020-07-31 08:53] LABS: Calcium 8.3 MG/DL (8.5-10.1); Osmolality,Calculated 293.1 MOS/KG (273-304)
[2020-07-31] MEDS: DIPYRIDAMOLE/ASPIRIN 200-25 MG CAPSULE PO SCH ×2 (09:14→20:59)
[2020-07-31] MEDS: NON-FORMULARY MEDICATION (Tiotropium-Olodaterol [Stiolto Respimat] 2.5-2.5 mcg/actuation m INH SCH (09:15)
[2020-07-31] MEDS: SPIRONOLACTONE 25 MG TABLET PO SCH (09:15)
[2020-07-31] MEDS: CHOLECALCIFEROL 1,000 UNIT TABLET PO SCH (09:15)
[2020-07-31] MEDS: FENOFIBRIC ACID 135 MG PO SCH (09:15)
[2020-07-31] MEDS: ZINC GLUCONATE 50 MG TABLET PO SCH (09:15)
[2020-07-31] MEDS: ASCORBIC ACID 500 MG TABLET PO SCH ×2 (09:15→20:59)
[2020-07-31] MEDS: AMIODARONE 200 MG TABLET PO SCH (09:15)
[2020-07-31 09:29] LABS: Basophils % 0.1 % (0.0-0.8); Hematocrit 41.1 VOL% (42.0-52.0); Hemoglobin 13.8 GM/DL (14.0-18.0); Immature Granulocytes % 0.6 %; Immature Granulocytes Absolute 0.08 #; Lymphocytes # 0.3 10*3/uL (1.4-4.0); Mean Corpuscular HGB Conc 33.6 GM/DL (32-36); Mean Corpuscular Volume 97.4 FL (87-102); Mean Platelet Volume 12.2 FL (9.6-12.0); Monocytes % 5.4 % (1.7-12.7); Neutrophils % 91.9 % (38.7-73.9); Platelet Count 107 T/CUMM (130-400); Red Blood Count 4.22 MC/CUMM (3.8-5.5); Red Cell Distribution Width 16.8 % (9.3-17.3); White Blood Count 12.8 T/CUMM (4-12)
[2020-07-31 09:53] LABS: Hypochromasia 1+; Lymphocytes 1 % (20-55); Microcytosis 1+; Platelet Estimate Decreased; Segmented Neutrophils 95 % (50-85); Total Cells Counted 100
[2020-07-31] MEDS: FUROSEMIDE 40 MG/4 ML VIAL IV SCH (10:08)
[2020-07-31] MEDS: INSULIN GLARGINE 100 UNIT/ML SUBCUT SCH (10:08)
[2020-07-31] MEDS: MULTIVITAMIN INJ 10 ML in AMINO ACIDS/DEXT/LYTES 5-15% 2,000 ML IV SCH (10:09)
[2020-07-31] MEDS: FAT EMULSION 20% 250 ML IV SCH (13:07)
[2020-07-31] MEDS: AMINO ACIDS/DEXT/LYTES 5-15% 2,000 ML IV SCH (16:01)
[2020-07-31] MEDS: FAMOTIDINE 20 MG/2 ML VIAL IV SCH (20:54)
[2020-07-31] MEDS: SIMVASTATIN 20 MG TABLET PO SCH (20:59)
[2020-08-01] MEDS: INSULIN LISPRO 100 UNIT/ML SUBCUT SCH ×4 (00:42→18:22)
[2020-08-01] MEDS: PIPERACILLIN/TAZOBACTAM 3,375 MG in SODIUM CHLORIDE 0.9% 100 ML IV SCH ×3 (00:43→17:28)
[2020-08-01] MEDS: ALBUTEROL INHALER 18 GM INH SCH ×3 (02:13→13:46)
[2020-08-01] MEDS: methylPREDNISolone SOD SUC 40 MG/1 ML VIAL IV SCH ×3 (02:45→18:22)
[2020-08-01 05:02] LABS: Basophils % 0.1 % (0.0-0.8); Hematocrit 37.4 VOL% (42.0-52.0); Hemoglobin 12.2 GM/DL (14.0-18.0); Immature Granulocytes % 0.5 %; Immature Granulocytes Absolute 0.05 #; Lymphocytes # 0.1 10*3/uL (1.4-4.0); Lymphocytes % 1.3 % (21.2-54.2); Mean Corpuscular HGB Conc 32.6 GM/DL (32-36); Mean Corpuscular Volume 99.2 FL (87-102); Mean Platelet Volume 12.8 FL (9.6-12.0); Monocytes % 3.9 % (1.7-12.7); Neutrophils % 94.2 % (38.7-73.9); Red Blood Count 3.77 MC/CUMM (3.8-5.5); Red Cell Distribution Width 17.1 % (9.3-17.3)
[2020-08-01 05:11] LABS: Platelet Count 97 T/CUMM (130-400)
[2020-08-01 05:41] LABS: Calcium 8.4 MG/DL (8.5-10.1); Osmolality,Calculated 303.4 MOS/KG (273-304)
[2020-08-01 08:21] LABS: Anisocytosis 1+; Lymphocytes 2 % (20-55); Macrocytosis 1+; Platelet Estimate Decreased; Segmented Neutrophils 96 % (50-85); Total Cells Counted 100
[2020-08-01] MEDS: INSULIN GLARGINE 100 UNIT/ML SUBCUT SCH (09:08)
[2020-08-01] MEDS: ASCORBIC ACID 500 MG TABLET PO SCH ×2 (09:22→22:00)
[2020-08-01] MEDS: ZINC GLUCONATE 50 MG TABLET PO SCH (09:22)
[2020-08-01] MEDS: CHOLECALCIFEROL 1,000 UNIT TABLET PO SCH (09:22)
[2020-08-01] MEDS: DIPYRIDAMOLE/ASPIRIN 200-25 MG CAPSULE PO SCH ×2 (09:22→22:00)
[2020-08-01] MEDS: FENOFIBRIC ACID 135 MG PO SCH (09:22)
[2020-08-01] MEDS: NON-FORMULARY MEDICATION (Tiotropium-Olodaterol [Stiolto Respimat] 2.5-2.5 mcg/actuation m INH SCH (09:22)
[2020-08-01] MEDS: AMIODARONE 200 MG TABLET PO SCH (09:22)
[2020-08-01] MEDS: AMIODARONE INJ 450 MG in DEXTROSE 5% 241 ML IV SCH (12:39)
[2020-08-01] MEDS: FAT EMULSION 20% 250 ML IV SCH (15:47)
[2020-08-01] MEDS: MULTIVITAMIN INJ 10 ML in AMINO ACIDS/DEXT/LYTES 5-15% 2,000 ML IV SCH (17:18)
[2020-08-01] MEDS: FAMOTIDINE 20 MG/2 ML VIAL IV SCH (21:05)
[2020-08-01] MEDS: SIMVASTATIN 20 MG TABLET PO SCH (22:00)
[2020-08-02] MEDS: PIPERACILLIN/TAZOBACTAM 3,375 MG in SODIUM CHLORIDE 0.9% 100 ML IV SCH ×3 (00:09→15:05)
[2020-08-02] MEDS: INSULIN LISPRO 100 UNIT/ML SUBCUT SCH ×4 (00:18→17:36)
[2020-08-02] MEDS: methylPREDNISolone SOD SUC 40 MG/1 ML VIAL IV SCH ×3 (03:19→17:36)
[2020-08-02] MEDS: AMIODARONE INJ 450 MG in DEXTROSE 5% 241 ML IV SCH ×2 (04:16→19:48)
[2020-08-02 07:16] LABS: Basophils % 0.1 % (0.0-0.8); Hematocrit 38.3 VOL% (42.0-52.0); Hemoglobin 12.4 GM/DL (14.0-18.0); Immature Granulocytes % 0.4 %; Immature Granulocytes Absolute 0.04 #; Lymphocytes # 0.1 10*3/uL (1.4-4.0); Mean Corpuscular HGB Conc 32.4 GM/DL (32-36); Mean Corpuscular Volume 100.3 FL (87-102); Mean Platelet Volume 12.9 FL (9.6-12.0); Monocytes % 3.3 % (1.7-12.7); Neutrophils % 95.2 % (38.7-73.9); Platelet Count 100 T/CUMM (130-400); Red Blood Count 3.82 MC/CUMM (3.8-5.5); Red Cell Distribution Width 16.7 % (9.3-17.3); White Blood Count 10.4 T/CUMM (4-12)
[2020-08-02 07:25] LABS: Calcium 8.8 MG/DL (8.5-10.1); Osmolality,Calculated 310.5 MOS/KG (273-304)
[2020-08-02 08:10] LABS: Anisocytosis 1+; Band Neutrophils 3 % (0-10); Lymphocytes 2 % (20-55); Macrocytosis 1+; Metamyelocytes 1 %; Platelet Estimate Decreased; Segmented Neutrophils 91 % (50-85); Total Cells Counted 100
[2020-08-02] MEDS: INSULIN GLARGINE 100 UNIT/ML SUBCUT SCH (09:18)
[2020-08-02] MEDS: FENOFIBRIC ACID 135 MG PO SCH (09:19)
[2020-08-02] MEDS: NON-FORMULARY MEDICATION (Tiotropium-Olodaterol [Stiolto Respimat] 2.5-2.5 mcg/actuation m INH SCH (09:19)
[2020-08-02] MEDS: ZINC GLUCONATE 50 MG TABLET PO SCH (09:19)
[2020-08-02] MEDS: CHOLECALCIFEROL 1,000 UNIT TABLET PO SCH (09:19)
[2020-08-02] MEDS: AMIODARONE 200 MG TABLET PO SCH (09:19)
[2020-08-02] MEDS: DIPYRIDAMOLE/ASPIRIN 200-25 MG CAPSULE PO SCH ×2 (09:19→21:15)
[2020-08-02] MEDS: ASCORBIC ACID 500 MG TABLET PO SCH ×2 (09:19→21:15)
[2020-08-02] MEDS: FAT EMULSION 20% 250 ML IV SCH (14:59)
[2020-08-02] MEDS: AMINO ACIDS/DEXT/LYTES 5-15% 2,000 ML IV SCH (17:35)
[2020-08-02] MEDS ORDERED: INSULIN GLARGINE 100 UNIT/ML SUBCUT SCH (21:00)
[2020-08-02] MEDS: SIMVASTATIN 20 MG TABLET PO SCH (21:15)
[2020-08-02] MEDS: FAMOTIDINE 20 MG/2 ML VIAL IV SCH (21:16)
[2020-08-03] MEDS: INSULIN LISPRO 100 UNIT/ML SUBCUT SCH ×4 (01:24→17:25)
[2020-08-03] MEDS: PIPERACILLIN/TAZOBACTAM 3,375 MG in SODIUM CHLORIDE 0.9% 100 ML IV SCH ×3 (03:44→16:32)
[2020-08-03] MEDS: methylPREDNISolone SOD SUC 40 MG/1 ML VIAL IV SCH ×3 (03:44→17:36)
[2020-08-03] MEDS: INSULIN GLARGINE 100 UNIT/ML SUBCUT SCH ×2 (09:25→21:49)
[2020-08-03 11:10] LABS: Basophils % 0.1 % (0.0-0.8); Eosinophils % 0.1 % (0.00-10.9); Hematocrit 39.2 VOL% (42.0-52.0); Hemoglobin 12.9 GM/DL (14.0-18.0); Immature Granulocytes % 1.2 %; Immature Granulocytes Absolute 0.17 #; Lymphocytes # 0.4 10*3/uL (1.4-4.0); Mean Corpuscular HGB Conc 32.9 GM/DL (32-36); Mean Platelet Volume 12.8 FL (9.6-12.0); Monocytes % 6.1 % (1.7-12.7); NRBC # 0.02 10*3/uL; Neutrophils % 89.5 % (38.7-73.9); Platelet Count 97 T/CUMM (130-400); Red Blood Count 3.96 MC/CUMM (3.8-5.5); Red Cell Distribution Width 16.8 % (9.3-17.3); White Blood Count 14.2 T/CUMM (4-12)
[2020-08-03] MEDS: DIPYRIDAMOLE/ASPIRIN 200-25 MG CAPSULE PO SCH ×2 (11:14→21:35)
[2020-08-03] MEDS: ZINC GLUCONATE 50 MG TABLET PO SCH (11:15)
[2020-08-03] MEDS: AMIODARONE 200 MG TABLET PO SCH (11:15)
[2020-08-03] MEDS: NON-FORMULARY MEDICATION (Tiotropium-Olodaterol [Stiolto Respimat] 2.5-2.5 mcg/actuation m INH SCH (11:15)
[2020-08-03] MEDS: FENOFIBRIC ACID 135 MG PO SCH (11:15)
[2020-08-03] MEDS: CHOLECALCIFEROL 1,000 UNIT TABLET PO SCH (11:15)
[2020-08-03] MEDS: ASCORBIC ACID 500 MG TABLET PO SCH ×2 (11:15→21:35)
[2020-08-03] MEDS: FAT EMULSION 20% 250 ML IV SCH (14:14)
[2020-08-03] MEDS: AMIODARONE INJ 450 MG in DEXTROSE 5% 241 ML IV SCH (15:05)
[2020-08-03] MEDS: AMINO ACIDS/DEXT/LYTES 5-15% 2,000 ML IV SCH (16:13)
[2020-08-03] MEDS ORDERED: FUROSEMIDE 40 MG/4 ML VIAL IV ONE (16:16)
[2020-08-03] MEDS: SIMVASTATIN 20 MG TABLET PO SCH (21:35)
[2020-08-03] MEDS: FAMOTIDINE 20 MG/2 ML VIAL IV SCH (21:49)
[2020-08-04] MEDS: INSULIN LISPRO 100 UNIT/ML SUBCUT SCH ×4 (02:22→18:05)
[2020-08-04] MEDS: methylPREDNISolone SOD SUC 40 MG/1 ML VIAL IV SCH ×3 (03:07→18:05)
[2020-08-04] MEDS: PIPERACILLIN/TAZOBACTAM 3,375 MG in SODIUM CHLORIDE 0.9% 100 ML IV SCH ×2 (03:07→09:18)
[2020-08-04] MEDS ORDERED: cefTRIAXone 2,000 MG VIAL IM ONE (03:10)
[2020-08-04] MEDS: AMIODARONE INJ 450 MG in DEXTROSE 5% 241 ML IV SCH (05:47)
[2020-08-04 07:10] LABS: Basophils % 0.1 % (0.0-0.8); Eosinophils % 0.1 % (0.00-10.9); Hematocrit 36.3 VOL% (42.0-52.0); Hemoglobin 11.9 GM/DL (14.0-18.0); Immature Granulocytes Absolute 0.11 #; Lymphocytes # 0.3 10*3/uL (1.4-4.0); Lymphocytes % 2.5 % (21.2-54.2); Mean Corpuscular HGB Conc 32.8 GM/DL (32-36); Mean Corpuscular Volume 100.3 FL (87-102); Mean Platelet Volume 13.1 FL (9.6-12.0); Monocytes % 3.8 % (1.7-12.7); Neutrophils % 92.5 % (38.7-73.9); Red Blood Count 3.62 MC/CUMM (3.8-5.5); White Blood Count 10.7 T/CUMM (4-12)
[2020-08-04 07:21] LABS: Platelet Count 75 T/CUMM (130-400)
[2020-08-04 07:31] LABS: Albumin 2.2 G/DL (3.4-5.0); Bilirubin,Total 1.3 MG/DL (0.2-1.0); Calcium 8.7 MG/DL (8.5-10.1); Total Protein 5.6 G/DL (6.4-8.3)
[2020-08-04 07:40] LABS: Hypochromasia 1+; Lymphocytes 2 % (20-55); Microcytosis 1+; Platelet Estimate Decreased; Segmented Neutrophils 94 % (50-85); Total Cells Counted 100
[2020-08-04] MEDS: ALBUTEROL INHALER 18 GM INH SCH ×5 (08:09→18:06)
[2020-08-04] MEDS: FENOFIBRIC ACID 135 MG PO SCH (09:02)
[2020-08-04] MEDS: AMIODARONE 200 MG TABLET PO SCH (09:02)
[2020-08-04] MEDS: INSULIN GLARGINE 100 UNIT/ML SUBCUT SCH ×2 (09:02→22:36)
[2020-08-04] MEDS: DIPYRIDAMOLE/ASPIRIN 200-25 MG CAPSULE PO SCH ×2 (09:02→22:28)
[2020-08-04] MEDS: ASCORBIC ACID 500 MG TABLET PO SCH ×2 (09:03→22:28)
[2020-08-04] MEDS: CHOLECALCIFEROL 1,000 UNIT TABLET PO SCH (09:03)
[2020-08-04] MEDS: NON-FORMULARY MEDICATION (Tiotropium-Olodaterol [Stiolto Respimat] 2.5-2.5 mcg/actuation m INH SCH (09:03)
[2020-08-04] MEDS: ZINC GLUCONATE 50 MG TABLET PO SCH (09:03)
[2020-08-04] MEDS: METOPROLOL TARTRATE 5 MG/5 ML VIAL IV SCH ×2 (13:21→17:20)
[2020-08-04] MEDS: LACTATED RINGERS 1,000 ML IV SCH (13:54)
[2020-08-04] MEDS: FAT EMULSION 20% 250 ML IV SCH (13:57)
[2020-08-04] MEDS: MULTIVITAMIN INJ 10 ML in AMINO ACIDS/DEXT/LYTES 5-15% 2,000 ML IV SCH (16:21)
[2020-08-04] MEDS: FAMOTIDINE 20 MG/2 ML VIAL IV SCH (22:27)
[2020-08-04] MEDS: SIMVASTATIN 20 MG TABLET PO SCH (22:28)
[2020-08-05] MEDS: LACTATED RINGERS 1,000 ML IV SCH ×5 (01:56→23:48)
[2020-08-05] MEDS: INSULIN LISPRO 100 UNIT/ML SUBCUT SCH ×4 (02:26→17:50)
[2020-08-05] MEDS: METOPROLOL TARTRATE 5 MG/5 ML VIAL IV SCH ×4 (02:50→17:55)
[2020-08-05] MEDS: methylPREDNISolone SOD SUC 40 MG/1 ML VIAL IV SCH ×3 (04:35→17:57)
[2020-08-05 04:53] LABS: Basophils % 0.1 % (0.0-0.8); Hematocrit 34.7 VOL% (42.0-52.0); Hemoglobin 11.3 GM/DL (14.0-18.0); Immature Granulocytes Absolute 0.09 #; Lymphocytes # 0.2 10*3/uL (1.4-4.0); Lymphocytes % 2.2 % (21.2-54.2); Mean Corpuscular HGB Conc 32.6 GM/DL (32-36); Mean Corpuscular Volume 100.9 FL (87-102); Mean Platelet Volume 12.7 FL (9.6-12.0); Monocytes % 3.5 % (1.7-12.7); Neutrophils % 93.2 % (38.7-73.9); Red Blood Count 3.44 MC/CUMM (3.8-5.5); White Blood Count 9.1 T/CUMM (4-12)
[2020-08-05 04:55] LABS: Platelet Count 79 T/CUMM (130-400)
[2020-08-05 05:17] LABS: Anisocytosis 1+; Band Neutrophils 1 % (0-10); Hypochromasia 2+; Lymphocytes 2 % (20-55); Macrocytosis 1+; Metamyelocytes 1 %; Segmented Neutrophils 93 % (50-85); Total Cells Counted 100
[2020-08-05 05:18] LABS: Platelet Estimate Decreased
[2020-08-05 05:19] LABS: Bilirubin,Total 1.2 MG/DL (0.2-1.0); Calcium 8.6 MG/DL (8.5-10.1); Osmolality,Calculated 311.8 MOS/KG (273-304); Total Protein 5.6 G/DL (6.4-8.3)
[2020-08-05] MEDS: AMIODARONE INJ 450 MG in DEXTROSE 5% 241 ML IV SCH ×3 (06:31→22:41)
[2020-08-05] MEDS: ALBUTEROL INHALER 18 GM INH SCH ×4 (07:42→22:40)
[2020-08-05] MEDS: INSULIN GLARGINE 100 UNIT/ML SUBCUT SCH ×2 (08:45→22:44)
[2020-08-05] MEDS: DIPYRIDAMOLE/ASPIRIN 200-25 MG CAPSULE PO SCH ×2 (09:20→22:40)
[2020-08-05] MEDS: CHOLECALCIFEROL 1,000 UNIT TABLET PO SCH (09:21)
[2020-08-05] MEDS: FENOFIBRIC ACID 135 MG PO SCH (09:21)
[2020-08-05] MEDS: ASCORBIC ACID 500 MG TABLET PO SCH ×2 (09:21→22:39)
[2020-08-05] MEDS: ZINC GLUCONATE 50 MG TABLET PO SCH (09:21)
[2020-08-05] MEDS: FAT EMULSION 20% 250 ML IV SCH (13:02)
[2020-08-05] MEDS: LYTES IV SCH ×2 (15:14→17:50)
[2020-08-05] MEDS: AMINO ACIDS IV SCH ×2 (15:14→17:50)
[2020-08-05] MEDS: DEXT IV SCH ×2 (15:14→17:50)
[2020-08-05] MEDS: INSULIN REGULAR IV SCH ×3 (15:14→17:50)
[2020-08-05] MEDS: [UNRECOGNIZED DRUG - OTHER] IV SCH (15:21)
[2020-08-05] MEDS: MULTIVITAMIN IV SCH (15:21)
[2020-08-05] MEDS: NON-FORMULARY MEDICATION (Tiotropium-Olodaterol [Stiolto Respimat] 2.5-2.5 mcg/actuation m INH SCH (18:24)
[2020-08-05] MEDS: FAMOTIDINE 20 MG/2 ML VIAL IV SCH (22:38)
[2020-08-05] MEDS: SIMVASTATIN 20 MG TABLET PO SCH (22:39)
[2020-08-06] MEDS: METOPROLOL TARTRATE 5 MG/5 ML VIAL IV SCH ×4 (00:56→17:53)
[2020-08-06] MEDS: INSULIN LISPRO 100 UNIT/ML SUBCUT SCH ×4 (01:17→19:04)
[2020-08-06] MEDS: methylPREDNISolone SOD SUC 40 MG/1 ML VIAL IV SCH ×3 (03:44→17:54)
[2020-08-06] MEDS: LACTATED RINGERS 1,000 ML IV SCH ×3 (03:45→23:47)
[2020-08-06] MEDS: AMIODARONE INJ 450 MG in DEXTROSE 5% 241 ML IV SCH ×2 (04:26→17:54)
[2020-08-06] MEDS: ALBUTEROL INHALER 18 GM INH SCH ×3 (05:44→20:13)
[2020-08-06 06:38] LABS: Basophils % 0.2 % (0.0-0.8); Eosinophils % 0.4 % (0.00-10.9); Hematocrit 37.9 VOL% (42.0-52.0); Hemoglobin 12.3 GM/DL (14.0-18.0); Immature Granulocytes % 1.9 %; Immature Granulocytes Absolute 0.18 #; Lymphocytes # 0.3 10*3/uL (1.4-4.0); Mean Corpuscular HGB Conc 32.5 GM/DL (32-36); Mean Corpuscular Volume 101.3 FL (87-102); Mean Platelet Volume 13.2 FL (9.6-12.0); Monocytes % 5.1 % (1.7-12.7); NRBC # 0.02 10*3/uL; Neutrophils % 89.4 % (38.7-73.9); Red Blood Count 3.74 MC/CUMM (3.8-5.5); Red Cell Distribution Width 16.8 % (9.3-17.3); White Blood Count 9.6 T/CUMM (4-12)
[2020-08-06 06:43] LABS: Platelet Count 84 T/CUMM (130-400)
[2020-08-06 06:50] LABS: Calcium 8.7 MG/DL (8.5-10.1); Osmolality,Calculated 295.7 MOS/KG (273-304)
[2020-08-06 06:54] LABS: Albumin 2.3 G/DL (3.4-5.0); Bilirubin,Total 1.6 MG/DL (0.2-1.0); Calcium 8.8 MG/DL (8.5-10.1); Osmolality,Calculated 295.7 MOS/KG (273-304); Total Protein 5.8 G/DL (6.4-8.3)
[2020-08-06 06:58] LABS: Eosinophils 2 % (0-10); Lymphocytes 2 % (20-55); Macrocytosis Slight; Platelet Estimate Decreased; Segmented Neutrophils 93 % (50-85); Total Cells Counted 100
[2020-08-06] MEDS ORDERED: ceFAZolin 1,000 MG in SYRINGE 1 EACH IV ONE (08:48)
[2020-08-06 09:07] LABS: % Iron Saturation 60.9 % (18-50)
[2020-08-06] MEDS: INSULIN GLARGINE 100 UNIT/ML SUBCUT SCH ×2 (10:03→20:12)
[2020-08-06] MEDS: FENOFIBRIC ACID 135 MG PO SCH (10:46)
[2020-08-06] MEDS: NON-FORMULARY MEDICATION (Tiotropium-Olodaterol [Stiolto Respimat] 2.5-2.5 mcg/actuation m INH SCH (10:47)
[2020-08-06] MEDS: ASCORBIC ACID 500 MG TABLET PO SCH ×2 (11:18→20:14)
[2020-08-06] MEDS: ZINC GLUCONATE 50 MG TABLET PO SCH (11:18)
[2020-08-06] MEDS: CHOLECALCIFEROL 1,000 UNIT TABLET PO SCH (11:18)
[2020-08-06 11:19] LABS: INR 1.6; PT Patient Result 17.1 SECS (9.8-11.9)
[2020-08-06 11:28] LABS: Hepatitis B Core IgM Quant 0.16 Index; Hepatitis B Surface Ag Quant < 0.10 Index; Hepatitis B Surface Ag Result Negative (Negative); Hepatitis C Virus Ab Quant < 0.02 Index; Hepatitis C Virus Ab Result Negative (Negative)
[2020-08-06] MEDS: DEXTROSE 5% 1,000 ML IV SCH ×2 (13:01→23:46)
[2020-08-06] MEDS: MULTIVITAMIN IV SCH (13:45)
[2020-08-06] MEDS: INSULIN REGULAR IV SCH (13:45)
[2020-08-06] MEDS: [UNRECOGNIZED DRUG - OTHER] IV SCH (13:45)
[2020-08-06] MEDS: FAT EMULSION 20% 250 ML IV SCH (15:21)
[2020-08-06] MEDS ORDERED: TUBERCULIN SKIN TEST 0.1 ML SYRINGE INTRADERM ONE (15:28)
[2020-08-06] MEDS: DEXTROSE 50% 25 GM/50 ML VIAL IV PRN (17:06)
[2020-08-06] MEDS: levETIRAcetam 500 MG TABLET PO SCH (20:13)
[2020-08-06] MEDS: SIMVASTATIN 20 MG TABLET PO SCH (20:13)
[2020-08-06] MEDS: FAMOTIDINE 20 MG/2 ML VIAL IV SCH (21:13)
[2020-08-07] MEDS: METOPROLOL TARTRATE 5 MG/5 ML VIAL IV SCH ×2 (00:51→05:05)
[2020-08-07] MEDS: INSULIN LISPRO 100 UNIT/ML SUBCUT SCH ×3 (01:07→14:19)
[2020-08-07] MEDS: methylPREDNISolone SOD SUC 40 MG/1 ML VIAL IV SCH ×2 (02:05→09:57)
[2020-08-07] MEDS: ALBUTEROL INHALER 18 GM INH SCH ×2 (05:05→06:51)
[2020-08-07 05:14] LABS: Basophils % 0.2 % (0.0-0.8); Hematocrit 40.7 VOL% (42.0-52.0); Hemoglobin 13.5 GM/DL (14.0-18.0); Immature Granulocytes % 1.6 %; Immature Granulocytes Absolute 0.14 #; Lymphocytes # 0.3 10*3/uL (1.4-4.0); Mean Corpuscular HGB Conc 33.2 GM/DL (32-36); Mean Corpuscular Volume 98.8 FL (87-102); Mean Platelet Volume 13.2 FL (9.6-12.0); Monocytes % 4.7 % (1.7-12.7); Neutrophils % 89.5 % (38.7-73.9); Red Blood Count 4.12 MC/CUMM (3.8-5.5); Red Cell Distribution Width 16.5 % (9.3-17.3); White Blood Count 8.6 T/CUMM (4-12)
[2020-08-07 05:15] LABS: Platelet Count 88 T/CUMM (130-400)
[2020-08-07 05:33] LABS: Albumin 2.4 G/DL (3.4-5.0); Bilirubin,Total 1.9 MG/DL (0.2-1.0); Calcium 8.9 MG/DL (8.5-10.1); Osmolality,Calculated 281.4 MOS/KG (273-304); Total Protein 6.1 G/DL (6.4-8.3)
[2020-08-07 05:37] LABS: Hypochromasia 1+; Lymphocytes 3 % (20-55); Microcytosis 1+; Platelet Estimate Decreased; Segmented Neutrophils 93 % (50-85); Total Cells Counted 100
[2020-08-07] MEDS ORDERED: SODIUM CHLORIDE 0.9% 1,000 ML IV PRN (06:52)
[2020-08-07] MEDS ORDERED: ceFAZolin 1,000 MG VIAL ONE (06:55)
[2020-08-07] MEDS ORDERED: ceFAZolin 1,000 MG in SYRINGE 1 EACH IV ONE (07:00)
[2020-08-07] MEDS ORDERED: LIDOCAINE 2% 5 ML VIAL ONE (07:36)
[2020-08-07] MEDS ORDERED: propofoL 200 MG/20 ML VIAL IV ONE (07:36)
[2020-08-07] MEDS: AMIODARONE 200 MG TABLET PO SCH (09:41)
[2020-08-07] MEDS: levETIRAcetam 500 MG TABLET PO SCH (09:42)
[2020-08-07] MEDS: ASCORBIC ACID 500 MG TABLET PO SCH (09:42)
[2020-08-07] MEDS: ZINC GLUCONATE 50 MG TABLET PO SCH (09:42)
[2020-08-07] MEDS: CHOLECALCIFEROL 1,000 UNIT TABLET PO SCH (09:42)
[2020-08-07] MEDS: FENOFIBRIC ACID 135 MG PO SCH (09:43)
[2020-08-07] MEDS: NON-FORMULARY MEDICATION (Tiotropium-Olodaterol [Stiolto Respimat] 2.5-2.5 mcg/actuation m INH SCH (09:43)
[2020-08-07] MEDS: INSULIN GLARGINE 100 UNIT/ML SUBCUT SCH (09:43)
[2020-08-07] MEDS: DEXTROSE 5% 1,000 ML IV SCH (10:39)
[2020-08-07] MEDS: LACTATED RINGERS 1,000 ML IV SCH (11:43)
[2020-08-07 13:32] VITALS: BP 118/61
== END 2020-08-07 16:38 | DRG 207 ==
LOC: EDBD → EDUNIT# → N.ED 16:04 → N.EDINP 17:53 → SUATTDRO 17:53 → N.EDINP 19:15 → N.2E 19:44 → N.CC 07-13 04:51 → N.2E 07-25 17:23 → N.TELEN 07-30 10:20
PROVIDERS: ADMIT Family Medicine; ATTEND Internal Medicine
PROC: EGDWPEG (ICD-10-PCS; 2020-08-07 06:35)